=== PATIENT | female | born 1945 | race Caucasian/White ===

== ENCOUNTER → 2019-01-09 12:06 | Outpatient (CLI) | payer MEDICARE, OTHER, SELFPAY ==
[2019-01-09 12:28] LABS: Hematocrit 49.1 % (37-47); Hemoglobin 16.1 g/dL (12.0-15.0); Mean Corp Hgb Conc 32.8 g/dL (32-36); Mean Corpuscular Hgb 32.7 pg (27.0-32.0); Mean Corpuscular Volume 99.8 fL (81-99); Mean Platelet Vol. 11.7 fl (6.2-12.0); Platelet Count 205 K/mm3 (150-450); RBC Distribution Width CV 11.9 % (11.6-14.6); Red Blood Count 4.92 M/mm3 (4.2-5.4); White Blood Count 7.2 K/mm3 (4.4-11.0)
[2019-01-09 13:06] LABS: Vitamin D,25 Hydroxy 36.6 ng/mL (29.95-100.01)
[2019-01-09 13:16] LABS: ALB/GLOB Ratio 1.3 RATIO (0.9-2.4); AST(SGOT) 15 U/L (15-37); Alanine Aminotransfer ALT/SGPT 16 U/L (13-56); Albumin, Serum 4.3 g/dL (3.2-5.0); Alkaline Phosphatase 66 U/L (45-117); Anion Gap 5 (5-15); BUN 14 mg/dL (7-18); Calcium,Total 9.4 mg/dL (8.5-10.1); Chloride 106 mmol/L (98-107); Cholesterol 220 mg/dL (200); Creatinine, Serum 0.82 mg/dL (0.55-1.02); EST Glomerular Filtration Rate 73 mL/min (>60); Est Glom Filt Rate - Afr Amer 88 mL/min (>60); Globulin 3.4 g/dL (2.2-4.2); Glucose 88 mg/dL (74-106); High Density Lipoprotein 70 mg/dL; Potassium 4.2 mmol/L (3.5-5.1); Protein, Total 7.7 g/dL (6.4-8.2); Sodium Level 139 mmol/L (136-145); Thyroid Stim Hormone (TSH) 1.28 uIU/mL (0.358-3.74); Triglycerides 109 mg/dL; Very Low Density Lipoprotein 22 mg/dL (5-40)
== END ==
PROVIDERS: Family Provider Family Medicine Geriatric Medicine; PCP Family Medicine Geriatric Medicine; Referring Provider Student in an Organized Health Care Education/Training Program; Visit Provider Student in an Organized Health Care Education/Training Program
DX: E78.00 Pure hypercholesterolemia, unspecified (principal); E55.9 Vitamin D deficiency, unspecified; R63.6 Underweight
CPT/HCPCS: 80053; 80061; 82306; 84443; 85027

== ENCOUNTER → 2021-03-28 10:26 | Outpatient (CLI) | payer MEDICARE, OTHER, SELFPAY ==
--- NOTE | 2021-03-28 10:30 | EKG12_ITS ---
Test Reason : ROUTINE Blood Pressure : / mmHG Vent. Rate : 091 BPM Atrial Rate : 091 BPM P-R Int : 158 ms QRS Dur : 074 ms QT Int : 336 ms P-R-T Axes : 084 075 082 degrees QTc Int : 413 ms Normal sinus rhythm with sinus arrhythmia Incomplete right bundle branch block Left atrial enlargement Poor R wave progression Confirmed by NELLY PRETTY, ZHAO ([id number]), video editor EDEL NEWELL ([id number]) on 03/29/2021 10:01:28 AM Referred By: Yajaira Giles Confirmed By:ZHAO VILLEGAS MD
--- NOTE | 2021-03-28 10:42 | RAD_ITS ---
STUDY: X-RAY CHEST REASON FOR EXAM: Female, 75 years old. dyspnea on exertion TECHNIQUE: PA and lateral views of the chest. COMPARISON: Thoracic spine February 01, 2014. FINDINGS: No focal infiltrates or effusions. No pneumothorax. Lungs are hyperinflated. Normal size heart. Normal mediastinum and margaux. Normal visualized pulmonary arteries. Normal visualized aortic arch and descending thoracic aorta. Anterior wedging of an upper lumbar vertebral body unchanged. Normal visualized ribs, clavicles, and shoulders. There is no demonstrated abnormality of the visualized soft tissue structures of the upper abdomen. RAD/Chest PA and Lateral IMPRESSION: No acute cardiopulmonary disease. Hyperinflation. Electronically Signed: Mario Matos MD at 4:54 EST , Service support ,
== END ==
PROVIDERS: PCP Internal Medicine; Referring Provider Internal Medicine; Visit Provider Internal Medicine
DX: R06.00 Dyspnea, unspecified (principal)
CPT/HCPCS: 71046; 93005

== ENCOUNTER → 2021-04-05 12:44 | Outpatient (CLI) | payer MEDICARE, OTHER, SELFPAY ==
--- NOTE | 2021-04-06 10:10 | PFT ---
INTRODUCTION: The patient is a 75-year-old female that presents for pulmonary function studies secondary to a diagnosis of dyspnea. Respiratory therapy reported good patient effort. Bronchodilators were used during testing. INTERPRETATION: Forced expiration spirometry demonstrates the presence of a severe large airways obstructive ventilatory defect. There was a significant response to aerosolized bronchodilators noted. Spirograms are of fair quality but do not plateau indicating slow emptying of the lungs. Body plethysmography was performed and revealed an elevated TLC and RV, indicative of underlying hyperinflation and air trapping. Diffusing capacity by single breath CO is reduced at 55% of predicted. IMPRESSION: Partially reversible severe large airways obstructive ventilatory defect with associated hyperinflation, air trapping and moderate reduction in diffusing capacity.
== END ==
PROVIDERS: PCP Internal Medicine; Referring Provider Internal Medicine; Visit Provider Internal Medicine
DX: R06.00 Dyspnea, unspecified (principal)
CPT/HCPCS: 94060; 94726; 94729

== ENCOUNTER 2021-05-04 13:40 | Outpatient (CLI) | payer MEDICARE, OTHER, SELFPAY ==
[2021-05-04 13:45] VITALS: PULSE 104; PULSE 110; PULSE 114; PULSE 115; PULSE 117; PULSE 91; O2SAT 94; O2SAT 95; O2SAT 96; O2SAT 97
--- NOTE | 2021-05-05 10:15 | PCM.PSN.6M ---
PSN 6 Minute Walk Test 6 Minute Walk Test 6 Minute Walk Test: 6 Minute Walk Test PSN:6-Minute Walk Test Start: 05/04/21 14:01 Freq: Status: Active Protocol: [id number].6MINW Document 05/04/21 13:45 (Rec: 05/04/21 14:04 [id number]) 6 Minute Walk Test Date Performed 05/04/21 Time Performed 13:45 Height 5 ft 5 in Weight: 47.174 kg Weight in Pounds 104.[address]: Yajaira Giles Assistive device used: None Pre-test Oxygen Delivery Method Room Air Pulse Ox (%) 96 Pulse Rate (60-100 beats/min) 91 Dyspnea Amanuel Scale (0-10) 0 Exertion Amanuel Scale (6-20) 6 1st minute Oxygen Delivery Method Room Air Pulse Ox (%) 96 Pulse Rate (60-100 beats/min) 115 H 2nd minute Oxygen Delivery Method Room Air Pulse Ox (%) 94 Pulse Rate (60-100 beats/min) 110 H 3rd minute Oxygen Delivery Method Room Air Pulse Ox (%) 97 Pulse Rate (60-100 beats/min) 114 H 4th minute Oxygen Delivery Method Room Air Pulse Ox (%) 95 Pulse Rate (60-100 beats/min) 117 H 5th minute Oxygen Delivery Method Room Air Pulse Ox (%) 96 Pulse Rate (60-100 beats/min) 115 H 6th minute Oxygen Delivery Method Room Air Pulse Ox (%) 97 Pulse Rate (60-100 beats/min) 114 H Post-test Oxygen Delivery Method Room Air Pulse Ox (%) 96 Pulse Rate (60-100 beats/min) 104 H Dyspnea Amanuel Scale (0-10) 3 Exertion Amanuel Scale (6-20) 11 Full Laps Walked 17 Partial Lap, Number of Tiles Walked 30 Total Distance Walked (ft) 1033 Interpretation Interpretation: The patient ambulated 1033 feet over the course of 6 minutes beginning on room air without assistive devices. Pretesting oxygen saturation was noted to be 96% on room air. With ambulation, the cecily oxygen saturation was 94%. There was no significant exertional oxygen desaturation. Recommendations Recommendations: There is no indication for the use of supplemental oxygen at this time.
== END 2021-05-04 23:59 | disposition short-term general hospital (02) ==
LOC: PSN 13:41
PROVIDERS: PCP Internal Medicine; Referring Provider Internal Medicine; Visit Provider Internal Medicine
DX: R06.00 Dyspnea, unspecified (principal)
CPT/HCPCS: 94618

== ENCOUNTER → 2022-05-03 | Outpatient (CLI) | payer MEDICARE, OTHER, SELFPAY ==
--- NOTE | 2022-05-03 10:22 | BI_ITS ---
MAMMOGRAPHY - BILATERAL SCREENING REASON FOR EXAM: Female, 76 years old. Routine annual screening examination. PERTINENT HISTORY: Non-contributory. Remote left excisional breast biopsy. TECHNIQUE: Digital bilateral breast ria (3D mammographic acquisition) in the CC and MLO projections. 2-D mediolateral oblique (MLO) and craniocaudad (CC) views of both breasts were obtained. CAD: Full Field Digital Mammography with Computer Added Detection was performed. COMPARISON: Comparison is made with prior study dated 01/14/2015 and 10/30/2011. FINDINGS: Breast Composition: The breasts are heterogeneously dense, which may obscure small masses. There are no dominant masses or suspicious calcifications. Scattered bilateral macrocalcifications. No other significant abnormalities are identified. There has been no significant change since the prior study. BI/SCRN MAMM (CAD)W/RIA BILAT IMPRESSION: Stable bilateral screening mammogram. Yearly follow-up mammogram recommended. (A) ASSESSMENT CATEGORY: BIRADS Category 2: Benign. A letter regarding these results will be sent to the patient by the facility within 30 days. Approximately 10% of breast cancers are not detected by mammography. A normal mammogram should not delay biopsy of a clinically suspicious abnormality. [id number] Electronically Signed: Roman Renner MD at 13:04 EST ,
--- NOTE | 2022-05-03 10:29 | BD_ITS ---
STUDY: DUAL ENERGY X-RAY ABSORPTIOMETRY / DXA REASON FOR EXAM: Female, 76 years old. M810 TECHNIQUE: Bone Mineral Density (BMD) measurements of lumbar spine and bilateral hips were obtained. COMPARISON: Comparison is made with prior study dated 06/30/2014. FINDINGS: Lumbar Spine (L1-L4): g/cm2 (0.886) / T-score (-1.5) / Z-score (0.9) Findings are suggestive of osteopenia with a low fracture risk. Left Femur Total: g/cm2 (0.542) / T-score (-3.3) / Z-score (-1.5) Left Femoral Neck: g/cm2 (0.572) / T-score (-2.5) / Z-score (-0.5) Right Femur Total: g/cm2 (0.530) / T-score (-3.4) / Z-score (-1.6) Right Femoral Neck: g/cm2 (0.590) / T-score (-2.3) / Z-score (-0.3) The T-Scores on the most recent prior examination were: Lumbar Spine (L1-L4): There has been worsening of bone density since the previous examination. Left Femur Total: which represents an improvement of 2.5%. Right Femur Total: which represents an improvement of 7.9%. BD/Dexa Bone Density Study IMPRESSION: The patient is considered osteoporotic as outlined below according to World [employer] Organization (WHO) criteria with a high fracture risk. There has been improvement of bone density since the previous examination. Reference Information: The T-score is the number of standard deviations above or below the standard which is normal for young adults at their peak bone mineral density. The World Health Organization (WHO) interprets the T-scores as follows: Above -1 Normal bone density Between -1 and -2.5 Osteopenia Equal to / or below -2.5 Osteoporosis As a practical clinical guideline, osteopenia may be graded as follows: Mild -1 through -1.5 Moderate -1.6 through -2.0 Severe -2.1 through -2.4 The Z-score is the number of standard deviations above or below age-matched controls. A Z-score of less than -1.5 would be considered abnormal. References: 1. NIH Osteoporosis and Related Bone Diseases www osteo.org 2. International Society for Clinical Densitometry www iscd.org 3. National Osteoporosis Foundation www nof.org Electronically Signed: Roman Renner MD at 9:27 EST ,
== END | disposition home or self-care (01) ==
LOC: OPBD 10:19
PROVIDERS: PCP Family Medicine; Visit Provider Family Medicine
DX: Z12.31 Encounter for screening mammogram for malignant neoplasm of breast (principal); M81.0 Age-related osteoporosis without current pathological fracture; Z13.820 Encounter for screening for osteoporosis
CPT/HCPCS: 77063; 77067; 77080

== ENCOUNTER → 2022-07-04 | Outpatient (CLI) | payer MEDICARE, OTHER, SELFPAY ==
[2022-07-04 13:32] LABS: Absolute Lymphocyte Count 1.36 X10^3/uL (0.83-4.51); Absolute Neutrophil Count 5.9 X10^3/uL (2.0-7.7); Basophil# 0.04 X10^3/uL; Basophil% 0.5 % (0-1); Eosinophil# 0.06 X10^3/uL; Eosinophils% 0.8 % (0-5); Hematocrit 45.5 % (37-47); Hemoglobin 14.4 g/dL (12.0-15.0); Lymphocyte # 1.36 X10^3/ul (0.83-4.51); Lymphocyte % 17.1 % (19-41); Mean Corp Hgb Conc 31.6 g/dL (32-36); Mean Corpuscular Hgb 31.7 pg (27.0-32.0); Mean Corpuscular Volume 100.2 fL (81-99); Mean Platelet Vol. 11.5 fl (6.2-12.0); Monocyte# 0.61 X10^3/uL; Monocyte% 7.7 % (0-10); NRBC Flagged by Analyzer 0 % (0-5); Neutrophil # 5.87 X10^3/uL (2.7-7.7); Neutrophil % 73.6 % (47-70); Platelet Count 233 K/mm3 (150-450); RBC Distribution Width CV 13.2 % (11.6-14.6); RBC Distribution Width SD 49.1 fl (35.1-43.9); Red Blood Count 4.54 M/mm3 (4.2-5.4)
[2022-07-04 14:25] LABS: ALB/GLOB Ratio 1.4 RATIO (0.9-2.4); AST(SGOT) 21 U/L (15-37); Alanine Aminotransfer ALT/SGPT 30 U/L (13-56); Albumin, Serum 4.1 g/dL (3.2-5.0); Alkaline Phosphatase 63 U/L (45-117); Anion Gap 6 (5-15); BUN 14 mg/dL (7-18); BUN/Creat Ratio 18.7 RATIO (10-20); Calcium,Total 9.4 mg/dL (8.5-10.1); Chloride 107 mmol/L (98-107); Cholesterol 199 mg/dL (200); Creatinine, Serum 0.75 mg/dL (0.55-1.02); EST Glomerular Filtration Rate 81 mL/min (>60); Est Glom Filt Rate - Afr Amer 98 mL/min (>60); Ferritin 23 ng/mL (8-252); Glucose 102 mg/dL (74-106); High Density Lipoprotein 70 mg/dL; Magnesium 2.4 mg/dL (1.6-2.6); Potassium 4.3 mmol/L (3.5-5.1); Protein, Total 7.1 g/dL (6.4-8.2); Sodium Level 141 mmol/L (136-145); Triglycerides 172 mg/dL; Very Low Density Lipoprotein 34 mg/dL (5-40)
[2022-07-04 14:29] LABS: Vitamin B12 > 2000 pg/mL (211-911)
== END | disposition home or self-care (01) ==
LOC: MFPLAB 12:21
PROVIDERS: PCP Family Medicine; Referring Provider Family Medicine; Visit Provider Family Medicine
DX: R25.2 Cramp and spasm (principal)
CPT/HCPCS: 36415; 80053; 80061; 82607; 82728; 83735; 84443; 85025

== ENCOUNTER 2023-01-09 13:54 | Emergency (ER) | payer MEDICARE, OTHER, SELFPAY ==
[2023-01-09 13:55] VITALS: BP 135/75; PULSE 79; RESP 30; TEMP 36; O2SAT 95; BMI 17.6
--- NOTE | 2023-01-09 14:08 | EX.ED.DYSGE1 ---
HPI History of Present Illness Chief Complaint: Dizziness Informant: patient and family Narrative Narrative: By EMS sister currently present during evaluation. Patient at the hardware store with the sister, was standing at the counter for 5 minutes sudden onset feeling off with tunnel vision. She reported lightheaded symptoms no chest pains or palpitations. She went and sat on the bench reported was sweaty and nearly passed out. EMS was contacted. Had a transient right frontal headache during this time however is resolved. No history of similar. History of COPD with tobacco history. No home oxygen. No recent cough. No abdominal pain. No recent vomiting diarrhea. Denies urinary symptoms. Further discussion she did start CBD Gummies a week ago taking it daily. She took 1 at 1030 today. She states she has not felt any effects of it since taking it. She states 1 sisters take it for back pain, she states at times would have some spasms in her upper back when watching TV. None currently. Currently feels back to baseline. Prior similar symptoms: No PFSH PFSH Medical History Breast lump Cataracts, bilateral Depression Hearing problem History of fracture Hyperlipemia Osteoarthritis Osteoporosis Home Medications albuterol sulfate 90 mcg/actuation aerosol inhaler 2 puff inhalation Q6H PRN 03/20/21 [History Last Taken Unknown] umeclidinium 62.5 mcg-vilanterol 25 mcg/actuation powdr for inhalation (Anoro Ellipta) 1 inh inhalation DAILY #60 ea 06/26/21 [Rx Last Taken Unknown] Allergy/AdvReac Type Severity Reaction Status Date / Time No Known Allergies Allergy Verified 05/08/21 13:02 Family History Mother Heart disease Diabetes Sister Hypertension Thyroid disorder Diabetes Cancer Brother Diabetes Surgical History History of breast biopsy History of tubal ligation Hx of eye surgery Social History Smoking Status: Current every day smoker tobacco type: cigarettes Tobacco: How many years used: 50 alcohol intake: never substance use type: does not use what type of physical activity do you participate in: none ROS ROS ED Constitutional Constitutional ED: Denies chills, fever(s) or sweats Eyes Eyes: Denies change in vision ENT ENT ED: Denies dysphagia or sore throat Cardiovascular Cardiovascular: Denies chest pain, leg edema, palpitations or racing heartbeat Respiratory/Chest Respiratory/Chest: Denies cough, dyspnea or dyspnea on exertion Gastrointestinal Gastrointestinal: Denies abdominal pain, diarrhea, nausea or vomiting Genitourinary Genitourinary ED: Denies dysuria, hematuria or urinary frequency Musculoskeletal Musculoskeletal: Denies back pain, extremity pain or neck pain Integumentary Denies rash or wounds Neurologic Neurologic: Denies headache(s), paresthesias or weakness EXAM Physical Exam Const Vital Signs: 01/09/23 13:55 01/09/23 14:02 01/09/23 15:23 Temperature 96.8 F L Temperature Source Temporal Pulse Rate 79 81 Respiratory Rate 30 H Respiratory Effort Normal Respiratory Pattern Normal Blood Pressure 135/75 H 135/67 H Blood Pressure Mean 95 Pulse Ox 95 97 Oxygen Delivery Method Room Air Positive well nourished and well developed General Appearance ED: well developed and NAD HEENT Reports moist mucous membranes normocephalic and atraumatic Eyes PERRL, EOMs intact bilaterally and conjunctivae normal Eyes Narrative: No nystagmus General Eye ED: Yes normal appearance of both eyes Neck no lymphadenopathy and supple General: Negative for tenderness Chest Wall Chest: Negative for tenderness Resp normal respiratory effort and normal air movement Effort and Inspection: symmetric chest movement; Negative for respiratory distress Cardio regular rate, regular rhythm and no murmurs Peripheral Pulses: pulses 2+ throughout GI normal to inspection, nondistended, normoactive bowel sounds and non-tender Palpation: Negative for guarding or rebound tenderness present Back/Spine no CVA tenderness and no thoracic nor lumbar tenderness Extremity normal to inspection General Extremety ED: Negative for edema or tenderness General Extremity: Negative for edema Neuro oriented x3, CN's II-XII intact bilaterally and no sensory deficits noted Neuro Narrative: NIH 0, normal cerebellar testing upper and lower. Sensorium / Orientation: awake and alert Skin no rashes or lesions noted and no wounds MDM MDM MDM Narrative Medical decision making narrative: Interventions / MDM: Differential diagnosis: Near syncope, vasovagal reaction, cardiac dysrhythmia, electrolyte abnormalities Diagnosis considered but do not suspect: N/A My EKG interpretation: Sinus rate of 79, no ST or T wave changes. QTc 442. Imaging independently reviewed and interpreted by myself: CT brain: No acute process also read by radiology External documents reviewed: N/A Test considered but not ordered:N/A ED course: Patient with no focal deficits history exam concerning for vasovagal reaction. She currently asymptomatic. NIH of 0. Transient right frontal headache. CT brain ordered. EKG sinus rhythm. She had no palpitations. Basic labs ordered for further evaluation. Laboratory studies normal CT brain negative. Remained asymptomatic. Sinus rhythm on the monitor. She was ambulated with no return of symptoms. Discussed with patient monitoring symptoms with return precautions. Outpatient follow-up with her PCP. All questions were answered. Re-evaluation: stable Disposition discussed with patient/family/significant other: Patient and sister Case discussed with consulting clinician: N/A This note was generated with [employer] software. It may contain incorrect words, spelling, and punctuation that were not noted in checking the note before signing. Lab Data Labs: Laboratory Results - last 24 hr 01/09/23 14:00 WBC 9.0 RBC 4.16 L Hgb 13.6 Hct 41.5 MCV 99.8 H MCH 32.7 H MCHC 32.8 RDW Std Deviation 48.5 H RDW Coeff of Walter 13.2 Plt Count 278 MPV 10.6 Immature Gran % (Auto) 0.300 Neut % (Auto) 73.8 H Lymph % (Auto) 16.8 L [place] % (Auto) 8.1 Eos % (Auto) 0.7 Baso % (Auto) 0.3 Absolute Neuts (auto) 6.7 Absolute Lymphs (auto) 1.52 Nucleated RBC % 0 Sodium 141 Potassium 3.5 Chloride 107 Carbon Dioxide 30.0 Anion Gap 4 L BUN 14 Creatinine 0.70 Estim Creat Clear Calc 36.83 Est GFR (MDRD) Af Amer 106 Est GFR (MDRD) Non-Af 87 BUN/Creatinine Ratio 20.1 H Glucose 113 H Calcium 9.3 Radiography Diagnostic Testing: Clinical Impression(s) from Imaging Studies Brain CT 01/09/23 14:24 IMPRESSION: Chronic involutional changes of the brain. Electronically Signed: Roman Renner MD at 15:00 EDT , Discharge Plan Triage Chief Complaint: Dizziness ED Provider: Ion Freeman Dx/Rx/DC Orders Clinical Impression: Headache, Vasovagal near syncope Instructions: ED Near-Fainting- Vagal Reaction Prescriptions: No Action albuterol sulfate 90 mcg/actuation HFA aerosol inhaler 2 puff inhalation Q6H PRN Anoro Ellipta 62.5-25 mcg/actuation blister with device 1 inh inhalation DAILY Qty: 60 5RF Primary Care Provider: Filomena Thurston Referrals: Filomena Thurston, [Primary Care Provider] - 1 Week Activity Restrictions/Additional Instructions: Labs normal EKG normal CT brain negative. Stop your use of CBD as this could be a culprit of your symptoms. Monitor symptoms. If symptoms recur or worsens return to the ED for evaluation. Follow-up with your doctor. Disposition Disposition: Home, Self Care
--- NOTE | 2023-01-09 14:24 | EKG12_ITS ---
Test Reason : DIZINESS Blood Pressure : / mmHG Vent. Rate : 079 BPM Atrial Rate : 079 BPM P-R Int : 154 ms QRS Dur : 070 ms QT Int : 386 ms P-R-T Axes : 080 068 063 degrees QTc Int : 442 ms Normal sinus rhythm Normal ECG Confirmed by AMARI PRETTY, SOM ([id number]), editor city SINDHU WIN ([id number]) on 01/11/2023 2:43:00 PM Referred By: TL Confirmed By:SOM FITZPATRICK MD
--- NOTE | 2023-01-09 14:24 | CT_ITS ---
STUDY: CT BRAIN WITHOUT CONTRAST REASON FOR EXAM: Female, 77 years old. Headache RADIATION DOSAGE (If Supplied By Facility): CTDIvol = ( 44.99 ) mGy, DLP = ( 745.49 ) mGycm TECHNIQUE: Transaxial CT imaging of the brain was performed without administration of intravenous contrast material. Individualized dose optimization techniques were used for this CT. COMPARISON: No relevant priors. FINDINGS: Normal soft tissue structures. Normal calvarium. There is mild cerebral atrophy with widening of the extra-axial spaces and ventricular dilatation. There are areas of decreased attenuation within the white matter tracts of the supratentorial brain, consistent with microvascular disease changes. Normal basal ganglia and thalami. Normal brainstem. Normal cerebellum. There is no intracranial hemorrhage. There are no findings of an acute ischemic infarction. Atherosclerotic plaque formation of the cavernous portions of the internal carotid arteries and vertebral arteries. Normal visualized paranasal sinuses. CT/Brain/Head without Contrast IMPRESSION: Chronic involutional changes of the brain. Electronically Signed: Roman Renner MD at 15:00 EDT ,
[2023-01-09 14:46] LABS: Anion Gap 4 (5-15); BUN 14 mg/dL (7-18); BUN/Creat Ratio 20.1 RATIO (10-20); Calcium,Total 9.3 mg/dL (8.5-10.1); Chloride 107 mmol/L (98-107); EST Glomerular Filtration Rate 87 mL/min (>60); Est Glom Filt Rate - Afr Amer 106 mL/min (>60); Estimated Creatinine Clearance 36.83 ml/min; Glucose 113 mg/dL (74-106); Potassium 3.5 mmol/L (3.5-5.1); Sodium Level 141 mmol/L (136-145)
[2023-01-09 14:54] LABS: Absolute Lymphocyte Count 1.52 X10^3/uL (0.83-4.51); Absolute Neutrophil Count 6.7 X10^3/uL (2.0-7.7); Basophil# 0.03 X10^3/uL; Basophil% 0.3 % (0-1); Eosinophil# 0.06 X10^3/uL; Eosinophils% 0.7 % (0-5); Hematocrit 41.5 % (37-47); Hemoglobin 13.6 g/dL (12.0-15.0); Lymphocyte # 1.52 X10^3/ul (0.83-4.51); Lymphocyte % 16.8 % (19-41); Mean Corp Hgb Conc 32.8 g/dL (32-36); Mean Corpuscular Hgb 32.7 pg (27.0-32.0); Mean Corpuscular Volume 99.8 fL (81-99); Mean Platelet Vol. 10.6 fl (6.2-12.0); Monocyte# 0.73 X10^3/uL; Monocyte% 8.1 % (0-10); NRBC Flagged by Analyzer 0 % (0-5); Neutrophil # 6.66 X10^3/uL (2.7-7.7); Neutrophil % 73.8 % (47-70); Platelet Count 278 K/mm3 (150-450); RBC Distribution Width CV 13.2 % (11.6-14.6); RBC Distribution Width SD 48.5 fl (35.1-43.9); Red Blood Count 4.16 M/mm3 (4.2-5.4)
[2023-01-09 15:23] VITALS: BP 135/67; PULSE 81; O2SAT 97
== END 2023-01-09 15:28 | disposition home or self-care (01) ==
PROVIDERS: Emergency Provider Emergency Medicine; PCP Family Medicine; Visit Provider Emergency Medicine
DX: R55 Syncope and collapse (principal); R51.9 Headache, unspecified; F17.210 Nicotine dependence, cigarettes, uncomplicated
CPT/HCPCS: 70450; 80048; 85025; 93005; 99285; A4216

== ENCOUNTER → 2023-02-18 | Outpatient (CLI) | payer MEDICARE, OTHER, SELFPAY ==
--- NOTE | 2023-02-18 12:43 | CDU_ITS ---
Reason For Study: Diplopia Rt. Velocities/BP Lt. Velocities/BP Prox CCA 94.9/14.6 cm/sec. Prox CCA 90.4/17.9 cm/sec. Mid CCA 79.5/21.2 cm/sec. Mid CCA 80.6/20.4 cm/sec. Dist CCA 45.4/14.6 cm/sec. Dist CCA 72.0/19.2 cm/sec. Prox ICA 68.5/20.1 cm/sec. Prox ICA 84.2/24.1 cm/sec. Mid ICA 79.5/25.6 cm/sec. Mid ICA 100.2/31.4 cm/sec. Dist ICA 115.6/37.1 cm/sec. Dist ICA 108.9/35.8 cm/sec. Rt. ICA/CCA = 1.5. Lt. ICA/CCA = 1.4. Prox ECA 76.8/6.9 cm/sec. Prox ECA 74.3/8.4 cm/sec. Rt. Vert. 66.3/13.5 cm/sec. Lt. Vert. 43.1/11.9 cm/sec. Right Extracranial There is intimal thickening but no significant atherosclerotic plaque noted in the right common carotid artery. There is heterogeneous, irregular atherosclerotic plaque noted in the right internal carotid artery. There is heterogeneous, irregular atherosclerotic plaque noted in the right external carotid artery. Antegrade flow is noted in the right vertebral artery. Left Extracranial There is homogeneous, smooth atherosclerotic plaque noted in the left common carotid artery. There is heterogeneous, irregular atherosclerotic plaque noted in the left internal carotid artery. The atherosclerotic plaque causes acoustic shadowing. There is heterogeneous, irregular atherosclerotic plaque noted in the left external carotid artery. Antegrade flow is noted in the left vertebral artery. Procedure Carotid Duplex [id number]. This is a Carotid Duplex examination using B-mode, color flow and specral Doppler. The exam was diagnostic. Exam performed in department. VL/Carotid Duplex Ultrasound Interpretation Summary Slightly irregular plaque at the proximal right internal carotid artery with le ss than 50% stenosis Less than 50% stenosis right external carotid artery Irregular dense calcific plaque with shadowing at the proximal left internal ca rotid artery with less than 50% stenosis Less than 50% stenosis left external carotid artery Patent and antegrade vertebral arteries bilaterally Ordering Physician: Teo Davis Referring Physician: Teo Davis Performed By: Darwin Phillip RVT
--- NOTE | 2023-02-18 13:38 | MRI_ITS ---
STUDY: MRI BRAIN WITHOUT CONTRAST REASON FOR EXAM: Female, 77 years old. DIPLOPLIA TECHNIQUE: Standardized multiplanar fat and water weighted pulse sequences were obtained. COMPARISON: CT brain January 09, 2023 FINDINGS: There is mild cerebral atrophy with widening of the extra-axial spaces and ventricular dilatation. There are multiple white matter hyperintensities, distributed throughout the deep white matter tracts of the cerebral hemispheres, consistent with moderate chronic white matter ischemic changes. There is no evidence for recent intracranial ischemia or other cause of cytotoxic edema on diffusion weighted imaging (DWI). Normal bilateral basal ganglia. Normal thalami. There is no extra-axial fluid accumulation. Normal flow voids within the major intracranial circulation suggesting patency by spin echo criteria. Normal sella turcica, pituitary gland, infundibular stalk, optic chiasm and hypothalamus. Normal tectal plate and pineal gland. Normal midbrain, jacinto and medulla. Normal cerebellum. Normal basal cisterns. Normal bilateral temporal bones. Normal bilateral internal auditory canals. No demonstrated orbital abnormality, within the constraints of a routine brain study. Normal visualized paranasal sinuses. Normal calvarium and skull base. Normal visualized soft tissue structures. Normal visualized upper cervical spine. MRI/Brain without Contrast IMPRESSION: Involutional changes of the brain, as described above. No acute disease. Electronically Signed: Alexys Salter MD at 23:48 EST ,
== END | disposition home or self-care (01) ==
PROVIDERS: PCP Family Medicine; Referring Provider Ophthalmology; Visit Provider Ophthalmology
DX: H53.2 Diplopia (principal)
CPT/HCPCS: 36415; 70551; 93880

== ENCOUNTER 2023-04-09 09:40 | Emergency (ER) | payer MEDICARE, OTHER, SELFPAY ==
[2023-04-09 09:41] VITALS: BP 148/73; PULSE 117; RESP 18; TEMP 36.8; O2SAT 93; BMI 15.7
[2023-04-09 10:05] VITALS: O2SAT 91
[2023-04-09] MEDS: Albuterol 2.5 MG/3 ML VIAL.NEB. INHALATION (10:37)
[2023-04-09] MEDS: Ipratropium/Albuterol Sulfate 3 ML AMPUL.NEB INHALATION (10:37)
[2023-04-09 10:38] VITALS: PULSE 92; RESP 21
[2023-04-09] MEDS: MethylPREDNISolone 125 MG/2 ML Vial IV (10:40)
[2023-04-09 10:45] LABS: Absolute Lymphocyte Count 0.66 X10^3/uL (0.83-4.51); Basophil# 0.03 X10^3/uL; Basophil% 0.2 % (0-1); Eosinophil# 0.01 X10^3/uL; Eosinophils% 0.1 % (0-5); Hematocrit 42.3 % (37-47); Hemoglobin 13.8 g/dL (12.0-15.0); Lymphocyte # 0.66 X10^3/ul (0.83-4.51); Lymphocyte % 4.2 % (19-41); Mean Corp Hgb Conc 32.6 g/dL (32-36); Mean Corpuscular Hgb 31.6 pg (27.0-32.0); Mean Corpuscular Volume 96.8 fL (81-99); Mean Platelet Vol. 10.6 fl (6.2-12.0); Monocyte# 1.05 X10^3/uL; Monocyte% 6.6 % (0-10); NRBC Flagged by Analyzer 0 % (0-5); Neutrophil # 14.01 X10^3/uL (2.7-7.7); Neutrophil % 88.4 % (47-70); Platelet Count 235 K/mm3 (150-450); RBC Distribution Width CV 12.9 % (11.6-14.6); RBC Distribution Width SD 46.1 fl (35.1-43.9); Red Blood Count 4.37 M/mm3 (4.2-5.4); White Blood Count 15.8 K/mm3 (4.4-11.0)
[2023-04-09 11:05] LABS: Anion Gap 4 (5-15); BUN 11 mg/dL (7-18); BUN/Creat Ratio 16.8 RATIO (10-20); Calcium,Total 9.9 mg/dL (8.5-10.1); Chloride 106 mmol/L (98-107); Creatinine, Serum 0.66 mg/dL (0.55-1.02); EST Glomerular Filtration Rate 94 mL/min (>60); Est Glom Filt Rate - Afr Amer 113 mL/min (>60); Estimated Creatinine Clearance 33.07 ml/min; Glucose 106 mg/dL (74-106); Potassium 3.6 mmol/L (3.5-5.1); Sodium Level 139 mmol/L (136-145); Troponin-I HS 6 pg/mL (3.0-54.0)
--- NOTE | 2023-04-09 11:05 | ED.VIS.DYS ---
HPI History of Present Illness Chief Complaint: Shortness of Breath Informant: patient Narrative Narrative: Patient presents with some cough and shortness of breath. Patient states this has been going on since about out the Saturday before . She is coughing. But she is not bringing much up. No hemoptysis. She states she has soreness every time she coughs but does not really have chest pain. She has never had DVT or PE. After specifically asking I find out she does have a history of COPD. She has albuterol inhaler but does not have a nebulizer at home. She is not on oxygen. No known fevers. No real myalgias. She does state that the inhaler helps but she keeps wheezing. She is just not getting better. PFSH PFS Medical History Breast lump Cataracts, bilateral Depression Hearing problem History of fracture Hyperlipemia Osteoarthritis Osteoporosis Home Medications albuterol sulfate 90 mcg/actuation aerosol inhaler 2 puff inhalation Q6H PRN 03/20/21 [History Last Taken Unknown] umeclidinium 62.5 mcg-vilanterol 25 mcg/actuation powdr for inhalation (Anoro Ellipta) 1 inh inhalation DAILY #60 ea 06/26/21 [Rx Last Taken Unknown] doxycycline monohydrate 100 mg capsule 100 mg PO BID #20 CAPSULES 04/09/23 [Rx Last Taken Unknown] prednisone 20 mg tablet 60 mg (3 x 20 mg) PO DAILY #15 TABLETS 04/09/23 [Rx Last Taken Unknown] Allergy/AdvReac Type Severity Reaction Status Date / Time No Known Allergies Allergy Verified 04/09/23 09:43 Family History Mother Heart disease Diabetes Sister Hypertension Thyroid disorder Diabetes Cancer Brother Diabetes Surgical History History of breast biopsy History of tubal ligation Hx of eye surgery Social History Smoking Status: Current every day smoker tobacco type: cigarettes Tobacco: How many years used: 50 alcohol intake: never substance use type: does not use what type of physical activity do you participate in: none ROS ROS ED ROS Narrative A complete review of systems was performed and is negative except as documented in the history of present illness. Some specific details below. Constitutional: No recent fevers or chills. No real malaise. But she states she is getting tired of coughing all the time. EYE: No discharge, visual complaints, or pain. ENT: No difficulty swallowing. No swelling. No pain. No reflux symptoms. CV: No palpitations. No syncope. She does have chest soreness primarily with a cough. Respiratory: See history of present illness. GI: No abdominal pain. No nausea vomiting diarrhea. No blood in stool. : No frequency dysuria or hematuria. Musculoskeletal: No recent trauma. No pains. No swelling. Skin: No rash. Nondiaphoretic. Neuro: No weakness or numbness. Endocrine: No polyuria or polydipsia. EXAM Physical Exam Narrative Exam Narrative: CONSTITUTIONAL: Patient is nontoxic in appearance. The patient looks comfortable. Work of breathing looks slightly increased. She does look quite thin. HEENT: No notable trauma. Mucous membranes moist. No sinus tenderness. No indication of pain with swallowing. EYES: No conjunctival injection. No proptosis. NECK:No JVD. No stridor. CARDIOVASCULAR: Regular rate. Regular rhythm. No notable murmur. No JVD. Tones are not muffled. RESPIRATORY: No respiratory distress. She does have a moist sounding cough. She has coarse breath sounds throughout. When I have her take deep breaths she really does not move much air. There is a small end expiratory wheeze. But her saturations are normal at 93% on room air. This is with her sitting in bed and not with ambulation though. GASTROINTESTINAL: Not distended. Bowel sounds are normal. No tenderness. No guarding. No rebound. No palpable mass. No bruit is heard. GENITOURINARY: No tenderness over the bladder. No CVA tenderness. MUSCULOSKELETAL: Atraumatic. No peripheral edema. No cord. No tenderness along the deep venous system. No asymmetry. No distended veins. NEUROLOGICAL: Patient is alert and appropriate. No focal deficit noted. SKIN: No pallor. PSYCHIATRIC: Patient is calm. Mood is appropriate. Const Vital Signs: 04/09/23 09:41 04/09/23 10:05 04/09/23 10:38 Temperature 98.2 F Temperature Source Temporal Pulse Rate 117 H 92 Respiratory Rate 18 21 H Respiratory Effort Short of Breath Respiratory Pattern Tachypnea Blood Pressure 148/73 H Blood Pressure Mean 98 Pulse Ox 93 Oxygen Delivery Method Room Air Room Air MDM MDM MDM Narrative Medical decision making narrative: My independent interpretation of the patient's two-view chest x-ray shows advanced COPD but no acute infiltrative process. Radiology does make note of multiple anterior compression fractures. But she is not having symptoms of these as acute. CBC shows a high white count of 15.8 otherwise normal. Patient's electrolytes show no marked abnormalities. Troponin is normal at 6. Patient is rechecked. She is 93% on room air. She is moving more air. She feels better. She would like to go home. Since she has had this for 3 weeks and tolerated well and already improved I think that is reasonable. She actually has an appointment with a immunohematologist, Dr. Rolon here in [facility] in 2 days. I explained she should still keep that. With her change in character or quantity of sputum and cough and high white count I will start doxycycline. We will start steroids for 5 days. She has her inhalers at home. She will talk to pulmonology about the option of getting a nebulizer that may give her a lot of benefit. Lab Data Attestation: I reviewed the patient's lab results. Labs: Laboratory Results - last 24 hr 04/09/23 10:35 WBC 15.8 H RBC 4.37 Hgb 13.8 Hct 42.3 MCV 96.8 MCH 31.6 MCHC 32.6 RDW Std Deviation 46.1 H RDW Coeff of Walter 12.9 Plt Count 235 MPV 10.6 Immature Gran % (Auto) 0.500 Neut % (Auto) 88.4 H Lymph % (Auto) 4.[address] [place] % (Auto) 6.6 Eos % (Auto) 0.1 Baso % (Auto) 0.2 Absolute Neuts (auto) 14.0 H Absolute Lymphs (auto) 0.66 L Nucleated RBC % 0 Sodium 139 Potassium 3.6 Chloride 106 Carbon Dioxide 29.0 Anion Gap 4 L BUN 11 Creatinine 0.66 Estim Creat Clear Calc 33.07 Est GFR (MDRD) Af Amer 113 Est GFR (MDRD) Non-Af 94 BUN/Creatinine Ratio 16.8 Glucose 106 Calcium 9.9 Troponin I High Sens 6 Radiography Diagnostic Testing: Clinical Impression(s) from Imaging Studies Chest X-Ray 04/09/23 11:51 IMPRESSION: Stable findings compatible with COPD. Multiple anterior wedge compression deformities of thoracic vertebral bodies, unaltered. Electronically Signed: Jonathan Tipton MD at 12:17 EST , EKG Initial EKG: Comments: My independent interpretation of the patient's EKG shows normal sinus rhythm with a rate of 89. No ventricular ectopy. There is some baseline variation but no sign of acute ST elevation or depression. NH interval, QRS duration and QTc are normal. Discharge Plan Triage Chief Complaint: Shortness of Breath ED Provider: Jaime Young Dx/Rx/DC Orders Clinical Impression: COPD with acute exacerbation Instructions: ED COPD Flare Prescriptions: New prednisone 20 mg tablet 60 mg PO DAILY Qty: 15 0RF doxycycline monohydrate 100 mg capsule 100 mg PO BID Qty: 20 0RF No Action albuterol sulfate 90 mcg/actuation HFA aerosol inhaler 2 puff inhalation Q6H PRN Anoro Ellipta 62.5-25 mcg/actuation blister with device 1 inh inhalation DAILY Qty: 60 5RF Primary Care Provider: Filomena Thurston Referrals: Elvis Rolon DO [Med Staff - Active Staff] - 2 Days (As scheduled in 2 days) Filomena Thurston DO [Primary Care Provider] - Disposition Disposition: Home, Self Care
--- NOTE | 2023-04-09 11:51 | RAD_ITS ---
STUDY: X-RAY CHEST REASON FOR EXAM: Female, 77 years old. Cough. TECHNIQUE: Frontal and lateral views of the chest. COMPARISON: March 28, 2021. FINDINGS: Marked hyperinflation with flattening of the hemidiaphragms and hyperlucency, unchanged. There is no demonstrated pleural abnormality. Normal size heart. Normal mediastinum and margaux. Normal visualized pulmonary arteries. Stable aortic tortuosity with calcification. Thoracic osteopenia with multiple anterior wedge compression deformities and endplate concavities compatible with osteoporosis, unchanged. Normal visualized ribs, clavicles, and shoulders. No abnormality of the visualized soft tissue structures of the upper abdomen. RAD/Chest PA and Lateral IMPRESSION: Stable findings compatible with COPD. Multiple anterior wedge compression deformities of thoracic vertebral bodies, unaltered. Electronically Signed: Jonathan Tipton MD at 12:17 EST ,
[2023-04-09 13:24] VITALS: BP 158/73; PULSE 88; RESP 24; O2SAT 92
== END 2023-04-09 13:34 | disposition home or self-care (01) ==
PROVIDERS: Emergency Provider Emergency Medicine; PCP Family Medicine; Visit Provider Emergency Medicine
DX: J44.1 Chronic obstructive pulmonary disease with (acute) exacerbation (principal); E78.5 Hyperlipidemia, unspecified; F17.210 Nicotine dependence, cigarettes, uncomplicated; Z79.899 Other long term (current) drug therapy
CPT/HCPCS: 71046; 80048; 84484; 85025; 87428; 87634; 93005; 94640; 96374; 99284; A4216

== ENCOUNTER → 2023-04-30 | Outpatient (CLI) | payer MEDICARE, OTHER, SELFPAY ==
--- OUTSIDE RECORDS SUMMARY | 2023-04-30 12:42 | XMS RPT_ITS | CCD ---
Author Name Unknown Address [facility] [address] [place] [address] Organization [facility] Care Team Providers Care Investigator Narcotics Name Role Phone PARESH HOWELL (BUS PERSON) Unavailable Unavailable Joe Flor DO Primary Care Provider LYNNE PRETTY, DR TRINH Attending UnavailTOM Jacob DO Primary Care Unavailable Medications Completed/Discontinued Medications Medication Drug Class(es) Dates Sig (Normalized) Sig (Original) [id number] 200 actuat albuterol 0.09 mg/actuat metered dose inhaler (1 source) beta2-Adrenergic Agonist Start: 03-15-2020 take 2 puff(s) by inhalation every four hours as needed for wheezing albuterol HFA (VENTOLIN HFA) 90 mcg/actuation inhaler Indications: COPD, severe (HCC) , Other emphysema (HCC) Inhale 2 Puffs as instructed every 4 hours as needed for Wheezing/Shortnes s of Breath. 36 g 1 03/15/2020 Active Problems Active Problems Problem Classification Problem Date Documented Date Episodic/Chronic Chronic obstructive pulmonary disease and bronchiectasis (1 source) Chronic obstructive lung disease; Translations: [Chronic obstructive pulmonary disease, unspecified] Onset: 01-09-2019 01-09-2019 Chronic Disorders of lipid metabolism (1 source) Pure hypercholesterolemia; Translations: [Pure hypercholesterolemia, unspecified] Onset: 03-06-2016 03-06-2016 Chronic Mood disorders (2 sources) Dysthymia; Translations: [Dysthymic disorder] Onset: 03-06-2016 03-06-2016 Chronic Nutritional deficiencies (1 source) Vitamin D deficiency; Translations: [Vitamin D deficiency, unspecified] Onset: 01-09-2019 01-09-2019 Chronic Occlusion or stenosis of precerebral arteries (1 source) Bilateral atherosclerosis of carotid arteries; Translations: [Occlusion and stenosis of bilateral carotid arteries] Onset: 01-06-2018 01-15-2018 Chronic Other screening for suspected conditions (not mental disorders or infectious disease) (3 sources) Patient encounter status; Translations: [Encounter for screening mammogram for malignant neoplasm of breast] Onset: 08-27-2022 Episodic Past or Other Problems Problem Classification Problem Date Documented Da te Episodic/Chronic Other disorders of stomach and duodenum (1 source) Adult hypertrophic pyloric stenosis; Translations: [Adult hypertrophic pyloric stenosis] Onset: 02-27-2017 Episodic Other nutritional; endocrine; and metabolic disorders (1 source) Underweight; Translations: [Underweight] Onset: 01-09-2019 01-09-2019 Episodic Residual codes; unclassified (1 source) Tobacco use and exposure - finding; Translations: [Tobacco use] Onset: 07-09-2018 07-09-2018 Episodic Results Test Name Value Interpretation Reference Range Facil ity Encounters Encounter Date Encounter Type Care Provider Facility Start: 08-27-2022 End: 08-27-[address] ZIGGY BATISTA MD Facility:B Start: 10-04-2021 ambulatory Joe Constantino Gillian roshni DO Work Phone: Internal Medicine [facility] [place] Start: 02-27-2017 Ambulatory PARESH (BUS PERSON) [facility] Procedures Date Procedure Procedure Detail Performing Clinician Start: 02-11-2017 Colonoscopy Joe jasmine DO Work Phone: Start: 03-14-2016 Mammography Joe jasmine DO Work Phone: Plan of Treatment Date Care Activity Detail Author Start: 03-15-2025 LIPID SCREEN LIPID SCREEN [facility] Start: 03-15-2023 DIABETES SCREEN DIABETES SCREEN [facility] Start: 02-11-2022 Colonoscopy COLONOSCOPY [facility] Start: 02-11-2022 COLORECTAL CANCER SCREENING COLORECTAL CANCER SCREENING [facility] Start: 12-07-2021 Influenza vaccination INFLUENZA (#1) [facility] Start: 04-08-2021 ADVANCE DIRECTIVE DISCUSSION ADVANCE DIRECTIVE DISCUSSION [facility] Start: 03-15-2021 ANNUAL PCP TEAM CHRONIC DISEASE VISIT ANNUAL PCP TEAM CHRONIC DISEASE VISIT [facility] Start: 03-14-2017 Mammography MAMMOGRAM [facility] Start: 09-20-2016 FECAL OCCULT BLOOD FECAL OCCULT BLOOD [facility] Start: 12-26-1997 SHINGRIX VACCINE (1 of 2) SHINGRIX VACCINE (1 of 2) [facility] Start: 12-26-1992 COLOGUARD (FIT-DNA) COLOGUARD (FIT-DNA) [facility] Start: 12-26-[address] COLONOGRAPHY [facility] Start: 12-26-1992 SIGMOIDOSCOPY SIGMOIDOSCOPY [facility] Start: 12-26-1966 Urine microalbumin profile DTAP,TDAP,TD (1 - Tdap) [facility] Start: 12-26-1953 PNEUMOCOCCAL: 65+ (1 - PCV) PNEUMOCOCCAL: 65+ (1 - PCV) [facility] Start: 06-25-1948 COVID-19 VACCINE (#1) COVID-19 VACCINE (#1) [facility] End: 11-03-2022 Screening mammography bi 2-view breast inc cad CHE SCREENING Radiology Routine Encounter for screening mammogram for breast cancer 1 Occurrences starting 10/04/2021 until 11/03/2022 [facility] Work Phone: Immunizations Immunization Date Immunization Notes Care Provider Fa tuan 02-01-2020 influenza, high-dose , quadrivalent vaccine (FLUZONE HIGH DOSE QUADRIVALENT) Joe Flor DO Work Phone: [facility] 01-09-2019 influenza, high dose seasonal, preservative-free Joe Flor DO Work Phone: [facility] 01-07-2018 influenza, high dose seasonal, preservative-free Joe Flor DO Work Phone: [facility] Work Phone: 01-20-2017 influenza, high dose seasonal, preservative-free Joe Flor DO Work Phone: [facility] Work Phone: 03-06-2016 influenza, high dose seasonal, preservative-free Joe Flor DO Work Phone: [facility] Work Phone: Payers Date Payer Category Payer Unknown [id number] 2022 Unknown [id number] 2015 Medicare [employer] [place] [employer] [id number] 2015-Present [phone] [address] [place] [address] O [id number] 2008 Unknown [facility] [id number] 2008-Present [phone] [address] [address] [place] [address] Indemnity [id number] 1945 Unknown [id number] Social History Date Type Detail Facility Start: 03-06-2016 Tobacco smoking status NHIS Smokes tobacco daily [facility] Work Phone: History of tobacco use Cigarette Smoker [facility] Work Phone: Start: 03-06-2016 Tobacco use and exposure Smokeless tobacco non-user [facility] Work Phone: Start: 04-12-2020 Alcohol intake Current drinke r of alcohol (finding) [facility] Start: 03-06-2016 History SDOH Alcohol Comment Occasionally [facility] Start: 03-12-2017 Tobacco Comment pack to pack a nd half a day if not working [facility] Start: 1945 Sex Assigned At Not on file C [facility] Clinical Note 09-12-2022 Note Date & Type Note Facility 09-12-2022 Note Patient Outreach (IN [facility]) DEE JIMENEZ ([id number]) 1945 F Date Time Provider Department 09/12/22 JOE FLOR During your visit today, we recorded the following information about you: Allergies As of Date: 09/12/2022 (No Known Allergies) Date Reviewed: 04/12/2020 Reviewed by: Laura AlvesDiesel Technician) RENATO Chapman - Fully Assessed Visit Diagnosis:Encounter for screening mammogram for breast cancer [Z12.31] Order(s):[facility] SCREENING [[id number]] Order #: [id number] FUTURE Prescriptions as of 09/17/2022 - budesonide-formoterol (SYMBICORT) 160-4.5 mcg/actuation inhaler Inhale 2 Puffs as instructed twice daily. - tiotropium bromide (SPIRIVA RESPIMAT) 2.5 mcg/actuation inhaler Inhale 2 Puffs as instructed once daily. Inhale two puffs once daily. - albuterol HFA (VENTOLIN HFA) 90 mcg/actuation inhaler Inhale 2 Puffs as instructed every 4 hours as needed for Wheezing/Shortness of Breath. - pantoprazole DR (PROTONIX) 40 mg tablet Take 1 tablet by mouth once daily. - CALCIUM CARBONATE/VITAMIN D3 (CALCIUM 600 + D ORAL) Take by mouth. Meds Comments as of 03/15/2020: On on current medications. March 15, 2020 Michelle Helton MA Problem List As Of Date 09/12/2022 Noted Resolved Dysthymia [F34.1] 03/06/2016 Pure hypercholesterolemia [E78.00] 03/06/2016 Carotid atherosclerosis, bilateral [I65.23] 01/06/2018 Depression, major, recurrent, moderate (HCC) [F*07/09/2018 Tobacco use [Z72.0] 07/09/2018 Chronic obstructive pulmonary disease (HCC) [J4*01/09/2019 Underweight [R63.6] 01/09/2019 Vitamin D deficiency [E55.9] 01/09/2019 Encounter Status:Closed by FCO MENDEZ on 09/17/22 [facility] Clinical Note 10-04-2021 Note Date & Type Note Facility 10-04-2021 Note Patient Outreach (IN [facility]) DEE JIMENEZ ([id number]) 1945 F Date Time Provider Department 10/04/21 JOE FLOR During your visit today, we recorded the following information about you: Allergies As of Date: 10/04/2021 (No Known Allergies) Date Reviewed: 04/12/2020 Reviewed by: Laura (Diesel Technician) RENATO hCapman - Fully Assessed Visit Diagnosis:Encounter for screening mammogram for breast cancer [Z12.31] Order(s):[facility] SCREENING [[id number]] Order #: [id number] FUTURE Prescriptions as of 10/09/2021 - budesonide-formoterol (SYMBICORT) 160-4.5 mcg/actuation inhaler Inhale 2 Puffs as instructed twice daily. - tiotropium bromide (SPIRIVA RESPIMAT) 2.5 mcg/actuation inhaler Inhale 2 Puffs as instructed once daily. Inhale two puffs once daily. - albuterol HFA (VENTOLIN HFA) 90 mcg/actuation inhaler Inhale 2 Puffs as instructed every 4 hours as needed for Wheezing/Shortness of Breath. - pantoprazole DR (PROTONIX) 40 mg tablet Take 1 tablet by mouth once daily. - CALCIUM CARBONATE/VITAMIN D3 (CALCIUM 600 + D ORAL) Take by mouth. Meds Comments as of 03/15/2020: On on current medications. March 15, 2020 Michelle Helton MA Problem List As Of Date 10/04/2021 Noted Resolved Dysthymia [F34.1] 03/06/2016 Pure hypercholesterolemia [E78.00] 03/06/2016 Carotid atherosclerosis, bilateral [I65.23] 01/06/2018 Depression, major, recurrent, moderate (HCC) [F*07/09/2018 Tobacco use [Z72.0] 07/09/2018 Chronic obstructive pulmonary disease (HCC) [J4*01/09/2019 Underweight [R63.6] 01/09/2019 Vitamin D deficiency [E55.9] 01/09/2019 Encounter Status:Closed by FCO MENDEZ on 10/09/21 [facility] Evaluation note Note Date & Type Note Facility documented in this encounter [facility] Reason for referral (narrative) Diagnostic Procedure Only (Routine) - Pending Review Note Date & Type Note Facility Referral ID Status Reason Start Date Expiration Date Visits Requested Visits Authorized [id number] Pending Review Auto-Generat ed Referral 10/04/2021 11/03/2022 1 1 [facility] Summary Purpose Family History No Family History Records FoundNo Family History Records FoundNo Family History Records Found Advance Directives No Advanced Directives Records FoundDocuments on File Type Date Recorded Patient Counter Former Expl anation Advance Directive(s) 02/11/2017 8:51 AM Advance Directive(s) 12/26/2016 2:39 PM Additional Source Comments INFORMATION SOURCE (unrecogn ized section and content) DATE CREATED AUTHOR AUTHOR'S ORGANIZ ATION 09/15/2022 [facility] ([place]) DATE CREATED AUTHOR AUTHOR'S ORGANIZ ATION 09/19/2022 [facility] Source Comments (unrecognize d section and content) In the event this informatio n is protected by the Federal Confidentiality of Alcohol and Drug Abuse Patient Records regulations: The Federal rules restrict any use of the information to criminally investigate or prosecute any alcohol or drug abuse patient.[facility] Care Teams (unrecognized sec tion and content) FOR RECORDS PERTAINING TO PATIENTS WHO ARE OR HAVE BEEN ENROLLED IN A CHEMICAL DEPENDENCY/SUBSTANCEABUSE PROGRAM, SOME INFORMATION MAY BE OMITTED. This clinical summary was aggregated from multiple sources. Caution should be exercised in using it in the provision of clinical care. This summary normalizes information from multiple sources, and as a consequence, information in this document may materially change the coding, format and clinical context of patient data. In addition, data may be omitted in some cases. CLINICAL DECISIONS SHOULD BE BASED ON THE PRIMARY CLINICAL RECORDS. [facility] [email or web address] [facility]. provides no warranty or guarantee of the accuracy or completeness of information in this document.
--- NOTE | 2023-05-01 10:07 | PFT ---
INTRODUCTION: The patient is a 77-year-old female who presents for pulmonary function studies secondary to a diagnosis of COPD. Respiratory therapy reported good patient effort. Bronchodilators were used during testing. INTERPRETATION: Forced expiration spirometry demonstrated the presence of a severe large airways obstructive ventilatory defect. There was a partial response to aerosolized bronchodilators, although technically nonsignificant. Body plethysmography was performed and revealed an elevated RV to 145% of predicted, indicative of underlying air trapping. Diffusing capacity by single breath CO was reduced to 49% of predicted. IMPRESSION: Irreversible severe large airways obstructive ventilatory defect with associated air trapping and symmetric reduction in diffusing capacity.
== END | disposition home or self-care (01) ==
LOC: PSN 12:21
PROVIDERS: PCP Family Medicine; Referring Provider Internal Medicine Critical Care Medicine; Visit Provider Internal Medicine Critical Care Medicine
DX: F17.211 Nicotine dependence, cigarettes, in remission (principal); J44.9 Chronic obstructive pulmonary disease, unspecified
CPT/HCPCS: 94060; 94726; 94729

== ENCOUNTER → 2023-05-01 | Outpatient (CLI) | payer MEDICARE, OTHER, SELFPAY ==
--- OUTSIDE RECORDS SUMMARY | 2023-05-01 12:41 | XMS RPT_ITS | CCD ---
Author Name Unknown Address [facility] [address] [place] [address] Organization [facility] Care Team Providers Care Pathology Laboratory Technologist Name Role Phone PARESH HOWELL (INSOLE DEPARTMENT WORKER) Unavailable Unavailable Joe Flor DO Primary Care Provider [phone] LYNNE PRETTY, DR TRINH Attending UnavailTOM Jacob DO Primary Care Unavailable Medications Completed/Discontinued Medications Medication Drug Class(es) Dates Sig (Normalized) Sig (Original) [id number] 200 actuat albuterol 0.09 mg/actuat metered dose [...] roshni DO Work Phone: Internal Medicine Main [place] Start: 02-27-2017 Ambulatory PARESH (INSOLE DEPARTMENT WORKER) [facility] Procedures Date Procedure Procedure Detail Performing Clinician Start: 02-11-2017 Colonoscopy Joe jasmine DO Work Phone: Start: 03-14-2016 Mammography Joe jasmine DO Work Phone: Plan of Treatment Date Care Activity Detail Author Start: 03-15-2025 LIPID SCREEN LIPID SCREEN [facility] Start: 03-15-2023 DIABETES SCREEN DIABETES SCREEN [facility] Start: 02-11-2022 Colonoscopy COLONOSCOPY [facility] Start: 02-11-2022 COLORECTAL CANCER SCREENING COLORECTAL CANCER SCREENING [facility] Start: 12-07-2021 Influenza vaccination INFLUENZA (#1) [facility] Start: 04-08-2021 ADVANCE DIRECTIVE DISCUSSION ADVANCE DIRECTIVE DISCUSSION [facility] Start: 03-15-2021 ANNUAL PCP TEAM CHRONIC DISEASE VISIT ANNUAL PCP TEAM CHRONIC DISEASE VISIT [facility] Start: 03-14-2017 Mammography MAMMOGRAM [facility] Start: 09-20-2016 FECAL OCCULT BLOOD FECAL OCCULT BLOOD [facility] Start: 12-26-1997 SHINGRIX VACCINE (1 of 2) SHINGRIX VACCINE (1 of 2) [facility] Start: 12-26-1992 COLOGUARD (FIT-DNA) COLOGUARD (FIT-DNA) [facility] Start: 12-26-[address] COLONOGRAPHY [facility] Start: 12-26-1992 SIGMOIDOSCOPY SIGMOIDOSCOPY [facility] Start: 12-26-1966 Urine microalbumin profile DTAP,TDAP,TD (1 - Tdap) [facility] Start: 12-26-1953 PNEUMOCOCCAL: 65+ (1 - PCV) PNEUMOCOCCAL: 65+ (1 - PCV) [facility] Start: 06-25-1948 COVID-19 VACCINE (#1) COVID-19 VACCINE (#1) [facility] End: 11-03-2022 Screening mammography bi 2-view breast inc cad CHE SCREENING Radiology Routine Encounter for screening mammogram for breast cancer 1 Occurrences starting 10/04/2021 until 11/03/2022 [facility] Work Phone: Immunizations Immunization Date Immunization Notes Care Provider Fa tuan 02-01-2020 influenza, high-dose , quadrivalent vaccine (FLUZONE HIGH DOSE QUADRIVALENT) Joe Flor DO Work Phone: [facility] 01-09-2019 influenza, high dose seasonal, preservative-free Joe Flor DO Work Phone: [facility] 01-07-2018 influenza, high dose seasonal, preservative-free Joe Flor DO Work Phone: [facility] Work Phone: 01-20-2017 influenza, high dose seasonal, preservative-free Joe Flor DO Work Phone: [facility] Work Phone: 03-06-2016 influenza, high dose seasonal, preservative-free Joe Flor DO Work Phone: [facility] Work Phone: Payers Date Payer Category Payer Unknown [id number] 2022 Unknown [id number] 2015 Medicare [employer] [place] [id number] 2015-Present [phone] [address] [place] [address] O [id number] 2008 Unknown [facility] [id number] 2008-Present [phone] [address] [address] [place] [address] Indemnity [id number] 1947 Unknown [id number] Social History Date Type Detail Facility Start: 03-06-2016 Tobacco smoking status NHIS Smokes tobacco daily [facility] Work Phone: History of tobacco use Cigarette Smoker [facility] Work Phone: Start: 03-06-2016 Tobacco use and exposure Smokeless tobacco non-user [facility] Work Phone: Start: 04-12-2020 Alcohol intake Current drinke r of alcohol (finding) [facility] Start: 03-06-2016 History SDOH Alcohol Comment Occasionally [facility] Start: 03-12-2017 Tobacco Comment pack to pack a nd half a day if not working [facility] Start: 1945 Sex Assigned At Not on file C [facility] Clinical Note 09-12-2022 Note Date & Type Note Facility 09-12-2022 Note Patient Outreach (IN TMMN) DEE JIMENEZ ([id number]) 1945 F Date Time Provider Department 09/12/22 JOE FLOR During your visit today, we recorded the following information about you: Allergies As of Date: 09/12/2022 (No Known Allergies) Date Reviewed: 04/12/2020 Reviewed by: Laura AlvesInspector [employer]) RENATO Chapman - Fully Assessed Visit Diagnosis:Encounter for screening mammogram for breast cancer [Z12.31] Order(s):[facility] SCREENING [[id number]] Order #: [id number] FUTURE Prescriptions as of 09/17/2022 - budesonide-formoterol [...] Encounter Status:Closed by FCO MENDEZ on 09/17/22 [facility] Clinical Note 10-04-2021 Note Date & Type Note Facility 10-04-2021 Note Patient Outreach (IN TMMN) DEE JIMENEZ ([id number]) 1945 F Date Time Provider Department 10/04/21 JOE FLOR During your visit today, we recorded the following information about you: Allergies As of Date: 10/04/2021 (No Known Allergies) Date Reviewed: 04/12/2020 Reviewed by: Laura (Inspector [employer]) RENATO Chapman - Fully Assessed Visit Diagnosis:Encounter for screening mammogram for breast cancer [Z12.31] Order(s):[facility] SCREENING [[id number]] Order #: [id number] FUTURE Prescriptions as of 10/09/2021 - budesonide-formoterol [...] Encounter Status:Closed by FCO MENDEZ on 10/09/21 [facility] Evaluation note Note Date & Type Note Facility documented in this encounter [facility] Reason for referral (narrative) Diagnostic Procedure Only (Routine) - Pending Review Note Date & Type Note Facility Referral ID Status Reason Start Date Expiration Date Visits Requested Visits Authorized [id number] Pending Review Auto-Generat ed Referral 10/04/2021 11/03/2022 1 1 [facility] Summary Purpose Family History No Family History Records FoundNo Family History Records FoundNo Family History Records Found Advance Directives No Advanced Directives Records FoundDocuments on File Type Date Recorded 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 ([place]) DATE CREATED AUTHOR AUTHOR'S ORGANIZ ATION 09/19/2022 [facility] Source Comments (unrecognize d section and content) In the event this informatio n is protected by the Federal Confidentiality of Alcohol and Drug Abuse Patient Records regulations: The Federal rules restrict any use of the information to criminally investigate or prosecute any alcohol or drug abuse patient.[facility] Care Teams (unrecognized sec tion and content) [...] BE BASED ON THE PRIMARY CLINICAL RECORDS. [employer] [facility]. provides no warranty or guarantee of the accuracy or completeness of information in this document.
[2023-05-01 12:45] VITALS: PULSE 100; PULSE 103; PULSE 114; PULSE 120; PULSE 121; PULSE 124; PULSE 127; PULSE 130; O2SAT 86; O2SAT 89; O2SAT 90; O2SAT 92
--- NOTE | 2023-05-01 12:49 | CPS ---
PATIENT WALKED 1 FULL LAP PRIOR TO PLACEMENT OF 2LPM NC FOR SPO2 86%. REMAINDER OF TESTING DONE ON 2LPM. PT HAD SOMEWHAT INCREASED WOB, HOWEVER DID NOT REQUIRE REST BREAKS. SHE IS HOPING FOR SOONER APPT THAN MAY 23 FOR F/U WITH PULMONARY PROVIDER. OFFICE NOTIFIED OF NEW HOME OXYGEN NEED AND FAXED TEST RESULTS. ALSO AWARE OF PT REQUEST FOR SOONER APPT IF POSSIBLE. PFT DONE YESTERDAY
--- NOTE | 2023-05-02 12:35 | PCM.PSN.6M ---
PSN 6 Minute Walk Test 6 Minute Walk Test 6 Minute Walk Test: 6 Minute Walk Test PSN:6-Minute Walk Test Start: 05/01/23 12:45 Freq: Status: Active Protocol: RESP.6MINW Document 05/01/23 12:45 [facility] (Rec: 05/01/23 12:53 [facility] [id number]) 6 Minute Walk Test Date Performed 05/01/23 Time Performed 12:30 Height 5 ft 5 in Weight: 93 lb Weight in Pounds 93.[address]: Elvis Rolon Assistive device used: None Pre-test Oxygen Delivery Method Room Air Pulse Ox 89 Pulse Rate (60-100) 100 Dyspnea Amanuel Scale (0-10) 2 Reported Symptoms Increased Work of Breathing 1st minute Oxygen Delivery Method Room Air Pulse Ox 86 Pulse Rate (60-100) 114 H Dyspnea Amanuel Scale (0-10) 3 Number of Rests Taken 1 Reported Symptoms Increased Work of Breathing 2nd minute Oxygen Flow Rate (L/min) 2 Oxygen Delivery Method Nasal Cannula Pulse Ox 90 Pulse Rate (60-100) 120 H Dyspnea Amanuel Scale (0-10) 3 Number of Rests Taken 0 Reported Symptoms Increased Work of Breathing 3rd minute Oxygen Flow Rate (L/min) 2 Oxygen Delivery Method Nasal Cannula Pulse Ox 90 Pulse Rate (60-100) 121 H Dyspnea Amanuel Scale (0-10) 3 Number of Rests Taken 0 Reported Symptoms Increased Work of Breathing 4th minute Oxygen Flow Rate (L/min) 2 Oxygen Delivery Method Nasal Cannula Pulse Ox 92 Pulse Rate (60-100) 124 H Dyspnea Amanuel Scale (0-10) 3 Number of Rests Taken 0 Reported Symptoms Increased Work of Breathing 5th minute Oxygen Flow Rate (L/min) 2 Oxygen Delivery Method Nasal Cannula Pulse Ox 90 Pulse Rate (60-100) 127 H Dyspnea Amanuel Scale (0-10) 3 Number of Rests Taken 0 Reported Symptoms Increased Work of Breathing 6th minute Oxygen Flow Rate (L/min) 2 Oxygen Delivery Method Nasal Cannula Pulse Ox 90 Pulse Rate (60-100) 130 H Dyspnea Amanuel Scale (0-10) 3 Number of Rests Taken 0 Reported Symptoms Increased Work of Breathing Post-test Oxygen Delivery Method Room Air Pulse Ox 90 Pulse Rate (60-100) 103 H Dyspnea Amanuel Scale (0-10) 2 Reported Symptoms Increased Work of Breathing Full Laps Walked 12 Partial Lap, Number of Tiles Walked 34 Total Distance Walked (ft) 742 05/01/23 12:49 [facility]iop[facility] Services by Carmella Casarez PATIENT WALKED 1 FULL LAP PRIOR TO PLACEMENT OF 2LPM NC FOR SPO2 86%. REMAINDER OF TESTING DONE ON 2LPM. PT HAD SOMEWHAT INCREASED WOB, HOWEVER DID NOT REQUIRE REST BREAKS. SHE IS HOPING FOR SOONER APPT THAN MAY 23 FOR F/U WITH PULMONARY PROVIDER. OFFICE NOTIFIED OF NEW HOME OXYGEN NEED AND FAXED TEST RESULTS. ALSO AWARE OF PT REQUEST FOR SOONER APPT IF POSSIBLE. PFT DONE YESTERDAY Initialized on 05/01/23 12:49 - END OF NOTE Interpretation Interpretation: The patient ambulated 742 feet over the course of 6 minutes beginning on room air without assistive devices. Pretesting oxygen saturation was noted to be 89% on room air. With ambulation, the cecily oxygen saturation was 86%, requiring 2 L/min of supplemental oxygen to maintain appropriate saturations. Recommendations Recommendations: 2 L/min of supplemental oxygen should be utilized with exertion.
== END | disposition home or self-care (01) ==
LOC: PSN 12:18
PROVIDERS: PCP Family Medicine; Visit Provider Internal Medicine Critical Care Medicine
DX: F17.211 Nicotine dependence, cigarettes, in remission (principal); J44.9 Chronic obstructive pulmonary disease, unspecified
CPT/HCPCS: 94618

== ENCOUNTER → 2023-05-28 | Outpatient (CLI) | payer MEDICARE, OTHER, SELFPAY ==
--- NOTE | 2023-05-28 16:34 | CT_ITS ---
STUDY: LOW DOSE CT LUNG CANCER SCREENING REASON FOR EXAM: Female, 77 years old. h/o TObacco Dependency. Patient smoked 1 pack per day for 55 years. COPD/emphysema RADIATION DOSAGE (If Supplied By Facility): CTDIvol = ( 2.01 ) mGy, DLP = ( 69.72 ) mGycm TECHNIQUE: No contrast was administered. Low dose technique was utilized (average mAS-38 and kVp 120). 1.25 mm axial source images with a slice interval of 1.25-mm were reconstructed in lung windows. 2.5 mm axial source images with a slice interval of 2.5-mm were reconstructed in lung windows. 5.0 mm axial source images with a slice interval of 5.0-mm were reconstructed in soft tissue windows. COMPARISON: Comparison is made with prior chest radiograph dated April 09, 2023. NODULES: There is a 6.2 mm x 10.7 mm spiculated nodule in the posterior medial segment of the right lower lobe. A neoplastic process should be ruled out. There is also evidence of a mild scarring at the right lung base. Emphysema: Hyperinflation. Emphysematous changes. Scarring at the lung apices worse on the right side. Endobronchial lesion: There is evidence of a soft tissue density at the origin of the right mainstem bronchus. This may represent sputum or phlegm. Clinical correlation is recommended. Aorta: Atherosclerotic plaque formation of the aortic arch. CORONARY ARTERIES: Coronary artery calcification is seen. Heart: Unremarkable Pulmonary artery: Unremarkable Mediastinal nodes: Moderate Other chest and abdominal findings: Loss of height of the dorsal vertebrae. CT/Low Dose CT Lung Screening IMPRESSION: Lung-RADS category 4A - Screening at 3 months with LDCT or evaluation with PET/CT may be used. IMPORTANT NOTES FOR USE: ACR Lung-RADS Version 1.1 Assessment Categories Release Date: 2018 Category: Coded 0-4 bases on nodule(s) with highest degree of suspicion. Negative screen is defined as categories 1 and 2; a positive screen is defined as categories 3 and 4. Category 3 and 4A nodules that are unchanged on interval CT should be coded as category 2, and individuals returned to screening in 12 months. Category 4X: Category 3 or 4 nodules with additional imaging findings that increase the suspicion of lung cancer, such as spiculation, GGN that doubles in size in 1 year, enlarged lymph notes, etc. Category Modifiers: S (significant finding unrelated to lung cancer) Electronically Signed: Roman Renner MD at 8:43 EST ,
--- OUTSIDE RECORDS SUMMARY | 2023-05-28 20:48 | XMS RPT_ITS | CCD ---
Author Name Unknown Address [facility] [email or web address] [place] [address] Organization [facility] Care Team Providers Care Shower Doors And Panels Fabricator Name Role Phone PARESH HOWELL (IT PROGRAM ENGAGEMENT DIRECTOR) Unavailable Unavailable Joe Flor DO Primary Care Provider [phone] LYNNE PRETTY, DR TRINH Attending UnavailTOM Jacob DO Primary Care Unavailable Medications Completed/Discontinued Medications Medication Drug Class(es) Dates Sig (Normalized) Sig (Original) [id number] 200 actuat albuterol 0.09 mg/actuat metered dose [...] roshni DO Work Phone: Internal Medicine Main [place] Start: 02-27-2017 Ambulatory PARESH (IT PROGRAM ENGAGEMENT DIRECTOR) [facility] Procedures Date Procedure Procedure Detail Performing Clinician Start: 02-11-2017 Colonoscopy Joe jasmine DO Work Phone: Start: 03-14-2016 Mammography Joe jasmine DO Work Phone: Plan of Treatment Date Care Activity Detail Author Start: 03-15-2025 LIPID SCREEN LIPID SCREEN [facility] Start: 03-15-2023 DIABETES SCREEN DIABETES SCREEN [facility] Start: 02-11-2022 Colonoscopy COLONOSCOPY [facility] Start: 02-11-2022 COLORECTAL CANCER SCREENING COLORECTAL CANCER SCREENING [facility] Start: 12-07-2021 Influenza vaccination INFLUENZA (#1) [facility] Start: 04-08-2021 ADVANCE DIRECTIVE DISCUSSION ADVANCE DIRECTIVE DISCUSSION [facility] Start: 03-15-2021 ANNUAL PCP TEAM CHRONIC DISEASE VISIT ANNUAL PCP TEAM CHRONIC DISEASE VISIT [facility] Start: 03-14-2017 Mammography MAMMOGRAM [facility] Start: 09-20-2016 FECAL OCCULT BLOOD FECAL OCCULT BLOOD [facility] Start: 12-26-1997 SHINGRIX VACCINE (1 of 2) SHINGRIX VACCINE (1 of 2) [facility] Start: 12-26-1992 COLOGUARD (FIT-DNA) COLOGUARD (FIT-DNA) [facility] Start: 12-26-[address] COLONOGRAPHY [facility] Start: 12-26-1992 SIGMOIDOSCOPY SIGMOIDOSCOPY [facility] Start: 12-26-1966 Urine microalbumin profile DTAP,TDAP,TD (1 - Tdap) [facility] Start: 12-26-1953 PNEUMOCOCCAL: 65+ (1 - PCV) PNEUMOCOCCAL: 65+ (1 - PCV) [facility] Start: 06-25-1948 COVID-19 VACCINE (#1) COVID-19 VACCINE (#1) [facility] End: 11-03-2022 Screening mammography bi 2-view breast inc cad CHE SCREENING Radiology Routine Encounter for screening mammogram for breast cancer 1 Occurrences starting 10/04/2021 until 11/03/2022 [facility] Work Phone: Immunizations Immunization Date Immunization Notes Care Provider Fa tuan 02-01-2020 influenza, high-dose , quadrivalent vaccine (FLUZONE HIGH DOSE QUADRIVALENT) Joe Flor DO Work Phone: [facility] 01-09-2019 influenza, high dose seasonal, preservative-free Joe Flor DO Work Phone: [facility] 01-07-2018 influenza, high dose seasonal, preservative-free Joe Flor DO Work Phone: [facility] Work Phone: 01-20-2017 influenza, high dose seasonal, preservative-free Joe Flor DO Work Phone: [facility] Work Phone: 03-06-2016 influenza, high dose seasonal, preservative-free Joe Flor DO Work Phone: [facility] Work Phone: Payers Date Payer Category Payer Unknown [id number] 2022 Unknown [id number] 2015 Medicare [employer] [place]AGE [place] MEDICARE [id number] 2015-Present [phone] [address] [place] [address] O [id number] 2008 Unknown [facility] [id number] 2008-Present [phone] [address] [address] [place] [address] Indemnity [id number] 1945 Unknown [id number] Social History Date Type Detail Facility Start: 03-06-2016 Tobacco smoking status NHIS Smokes tobacco daily [facility] Work Phone: History of tobacco use Cigarette Smoker [facility] Work Phone: Start: 03-06-2016 Tobacco use and exposure Smokeless tobacco non-user [facility] Work Phone: Start: 04-12-2020 Alcohol intake Current drinke r of alcohol (finding) [facility] Start: 03-06-2016 History SDOH Alcohol Comment Occasionally [facility] Start: 03-12-2017 Tobacco Comment pack to pack a nd half a day if not working [facility] Start: 1945 Sex Assigned At Not on file C [facility] Clinical Note 09-12-2022 Note Date & Type Note Facility 09-12-2022 Note Patient Outreach (IN TMMN) DEE JIMENEZ ([id number]) 1945 F Date Time Provider Department 09/12/22 JOE FLOR During your visit today, we recorded the following information about you: Allergies As of Date: 09/12/2022 (No Known Allergies) Date Reviewed: 04/12/2020 Reviewed by: Laura AlvesRehabilitation Liaison) RENATO Chapman - Fully Assessed Visit Diagnosis:Encounter for screening mammogram for breast cancer [Z12.31] Order(s):[facility] SCREENING [[id number]] Order #: [id number] FUTURE Prescriptions as of 09/17/2022 - budesonide-formoterol [...] Encounter Status:Closed by FCO MENDEZ on 09/17/22 [facility] Clinical Note 10-04-2021 Note Date & Type Note Facility 10-04-2021 Note Patient Outreach (IN TMMN) DEE JIMENEZ ([id number]) 1945 F Date Time Provider Department 10/04/21 JOE FLOR During your visit today, we recorded the following information about you: Allergies As of Date: 10/04/2021 (No Known Allergies) Date Reviewed: 04/12/2020 Reviewed by: Laura (Rehabilitation Liaison) RENATO Chapman - Fully Assessed Visit Diagnosis:Encounter for screening mammogram for breast cancer [Z12.31] Order(s):[facility] SCREENING [[id number]] Order #: [id number] FUTURE Prescriptions as of 10/09/2021 - budesonide-formoterol [...] Encounter Status:Closed by FCO MENDEZ on 10/09/21 [facility] Evaluation note Note Date & Type Note Facility documented in this encounter [facility] Reason for referral (narrative) Diagnostic Procedure Only (Routine) - Pending Review Note Date & Type Note Facility Referral ID Status Reason Start Date Expiration Date Visits Requested Visits Authorized [id number] Pending Review Auto-Generat ed Referral 10/04/2021 11/03/2022 1 1 [facility] Summary Purpose Family History No Family History Records FoundNo Family History Records FoundNo Family History Records Found Advance Directives No Advanced Directives Records FoundDocuments on File Type Date Recorded 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 Advance Directive(s) 02/11/2017 8:51 AM Advance Directive(s) 12/26/2016 2:39 PM Additional Source Comments INFORMATION SOURCE (unrecogn ized section and content) DATE CREATED AUTHOR AUTHOR'S ORGANIZ ATION 09/15/2022 [facility] ([place]) DATE CREATED AUTHOR AUTHOR'S ORGANIZ ATION 09/19/2022 [facility] Source Comments (unrecognize d section and content) In the event this informatio n is protected by the Federal Confidentiality of Alcohol and Drug Abuse Patient Records regulations: The Federal rules restrict any use of the information to criminally investigate or prosecute any alcohol or drug abuse patient.[facility] Care Teams (unrecognized sec tion and [...] BE BASED ON THE PRIMARY CLINICAL RECORDS. [facility] [employer] [facility]. provides no warranty or guarantee of the accuracy or completeness of information in this document.
== END | disposition home or self-care (01) ==
LOC: CT 16:33
PROVIDERS: PCP Family Medicine; Referring Provider Internal Medicine Critical Care Medicine; Visit Provider Internal Medicine Critical Care Medicine
DX: F17.211 Nicotine dependence, cigarettes, in remission (principal); J44.9 Chronic obstructive pulmonary disease, unspecified
CPT/HCPCS: 71271

== ENCOUNTER → 2023-05-30 | Outpatient (CLI) | payer MEDICARE, OTHER, SELFPAY ==
[2023-05-30 12:47] LABS: Platelet Count 329 K/mm3 (150-450)
[2023-05-30 12:55] LABS: International Normalized Ratio 0.9; Partial Thromboplast Time 25.4 Seconds (24.1-36.2); Prothrombin Time (Protime)PT. 12.5 SECONDS (11.7-14.9)
== END | disposition home or self-care (01) ==
LOC: LAB 11:55
PROVIDERS: PCP Family Medicine; Referring Provider Nurse Practitioner Acute Care; Visit Provider Nurse Practitioner Acute Care
DX: R06.00 Dyspnea, unspecified (principal); I48.91 Unspecified atrial fibrillation; R91.8 Other nonspecific abnormal finding of lung field
CPT/HCPCS: 36415; 85049; 85610; 85730

== ENCOUNTER 2023-06-07 08:43 | Outpatient (CLI) | payer MEDICARE, OTHER, SELFPAY ==
[2023-06-07] VITALS (16 sets, daily range): BP systolic 116–157; BP diastolic 60–89; PULSE 84–96; RESP 18–21; TEMP 36.4; O2SAT 94–100; BMI 15.7
--- OUTSIDE RECORDS SUMMARY | 2023-06-07 09:07 | XMS RPT_ITS | CCD ---
Author Name Unknown Address [facility] [address] [place] [address] Organization [facility] Care Team Providers Care Structural Test Engineer Name Role Phone PARESH HOWELL ([employer]EE BLENDER) Unavailable Unavailable Joe Flor DO Primary Care Provider LYNNE PRETTY, DR TRINH Attending UnavailTOM Jacob DO Primary Care Unavailable Medications Completed/Discontinued Medications Medication Drug Class(es) Dates Sig (Normalized) Sig (Original) [id number] 200 actuat albuterol 0.09 mg/actuat metered dose [...] roshni DO Work Phone: Internal Medicine [facility] Start: 02-27-2017 Ambulatory PARESH ([employer]FFEE BLENDER) [facility] Procedures Date Procedure Procedure Detail Performing Clinician Start: 02-11-2017 Colonoscopy Joe jasmine DO Work Phone: Start: 03-14-2016 Mammography Joe jasmine DO Work Phone: Plan of Treatment Date Care Activity Detail Author Start: 03-15-2025 LIPID SCREEN LIPID SCREEN [facility] Start: 03-15-2023 DIABETES SCREEN DIABETES SCREEN [facility] Start: 02-11-2022 Colonoscopy COLONOSCOPY [facility] Start: 02-11-2022 COLORECTAL CANCER SCREENING COLORECTAL CANCER SCREENING [facility] Start: 12-07-2021 Influenza vaccination INFLUENZA (#1) [facility] Start: 04-08-2021 ADVANCE DIRECTIVE DISCUSSION ADVANCE DIRECTIVE DISCUSSION [facility] Start: 03-15-2021 ANNUAL PCP TEAM CHRONIC DISEASE VISIT ANNUAL PCP TEAM CHRONIC DISEASE VISIT [facility] Start: 03-14-2017 Mammography MAMMOGRAM [facility] Start: 09-20-2016 FECAL OCCULT BLOOD FECAL OCCULT BLOOD [facility] Start: 12-26-1997 SHINGRIX VACCINE (1 of 2) SHINGRIX VACCINE (1 of 2) [facility] Start: 12-26-1992 COLOGUARD (FIT-DNA) COLOGUARD (FIT-DNA) [facility] Start: 12-26-[address] COLONOGRAPHY [facility] Start: 12-26-1992 SIGMOIDOSCOPY SIGMOIDOSCOPY [facility] Start: 12-26-1966 Urine microalbumin profile DTAP,TDAP,TD (1 - Tdap) [facility] Start: 12-26-1953 PNEUMOCOCCAL: 65+ (1 - PCV) PNEUMOCOCCAL: 65+ (1 - PCV) [facility] Start: 06-25-1948 COVID-19 VACCINE (#1) COVID-19 VACCINE (#1) [facility] End: 11-03-2022 Screening mammography bi 2-view breast inc cad [facility] SCREENING Radiology Routine Encounter for screening mammogram for breast cancer 1 Occurrences starting 10/04/2021 until 11/03/2022 [facility] Work Phone: Immunizations Immunization Date Immunization Notes Care Provider Fa tuan 02-01-2020 influenza, high-dose , quadrivalent vaccine (FLUZONE HIGH DOSE QUADRIVALENT) Joe Flor DO Work Phone: [facility] 01-09-2019 influenza, high dose seasonal, preservative-free Joe Flor DO Work Phone: [facility] 01-07-2018 influenza, high dose seasonal, preservative-free Joe Flor DO Work Phone: [facility] Work Phone: 01-20-2017 influenza, high dose seasonal, preservative-free Joe Flor DO Work Phone: [facility] Work Phone: 03-06-2016 influenza, high dose seasonal, preservative-free Joe Flor DO Work Phone: [facility] Work Phone: Payers Date Payer Category Payer Unknown [id number] 2022 Unknown [id number] 2015 Medicare [employer] [place] [id number] 2015-Present [phone] [address] [place] [address] O [id number] 2008 Unknown [facility] [id number] 2008-Present [phone] [address] [address] [place] [address] Indemnity [id number] 1945 Unknown [id number] Social History Date Type Detail Facility Start: 03-06-2016 Tobacco smoking status NHIS Smokes tobacco daily [facility] Work Phone: History of tobacco use Cigarette Smoker [facility] Work Phone: Start: 03-06-2016 Tobacco use and exposure Smokeless tobacco non-user [facility] Work Phone: Start: 04-12-2020 Alcohol intake Current drinke r of alcohol (finding) [facility] Start: 03-06-2016 History SDOH Alcohol Comment Occasionally [facility] Start: 03-12-2017 Tobacco Comment pack to pack a nd half a day if not working [facility] Start: 1945 Sex Assigned At Not on file C [facility] Clinical Note 09-12-2022 Note Date & Type Note Facility 09-12-2022 Note Patient Outreach (IN [facility]) DEE JIMENEZ ([id number]) 1945 F Date Time Provider Department 09/12/22 JOE FLOR During your visit today, we recorded the following information about you: Allergies As of Date: 09/12/2022 (No Known Allergies) Date Reviewed: 04/12/2020 Reviewed by: Laura AlvesMedication Care Manager) RENATO Chapman - Fully Assessed Visit Diagnosis:Encounter for screening mammogram for breast cancer [Z12.31] Order(s):[facility] SCREENING [[id number]] Order #: [id number] FUTURE Prescriptions as of 09/17/2022 - budesonide-formoterol [...] Encounter Status:Closed by FCO MENDEZ on 09/17/22 [facility] Clinical Note 10-04-2021 Note Date & Type Note Facility 10-04-2021 Note Patient Outreach (IN [facility]) DEE JIMENEZ ([id number]) 1945 F Date Time Provider Department 10/04/21 JOE FLOR During your visit today, we recorded the following information about you: Allergies As of Date: 10/04/2021 (No Known Allergies) Date Reviewed: 04/12/2020 Reviewed by: Laura (Medication Care Manager) RENATO Chapman - Fully Assessed Visit Diagnosis:Encounter for screening mammogram for breast cancer [Z12.31] Order(s):[facility] SCREENING [[id number]] Order #: [id number] FUTURE Prescriptions as of 10/09/2021 - budesonide-formoterol [...] Encounter Status:Closed by FCO MENDEZ on 10/09/21 [facility] Evaluation note Note Date & Type Note Facility documented in this encounter [facility] Reason for referral (narrative) Diagnostic Procedure Only (Routine) - Pending Review Note Date & Type Note Facility Referral ID Status Reason Start Date Expiration Date Visits Requested Visits Authorized [id number] Pending Review Auto-Generat ed Referral 10/04/2021 11/03/2022 1 1 [facility] Summary Purpose Family History No Family History Records FoundNo Family History Records FoundNo Family History Records Found Advance Directives No Advanced Directives Records FoundDocuments on File Type Date Recorded Patient Farm[employer] Advance Directive(s) 02/11/2017 8:51 AM Advance Directive(s) 12/26/2016 2:39 PM Additional Source Comments INFORMATION SOURCE (unrecogn ized section and content) DATE CREATED AUTHOR AUTHOR'S ORGANIZ ATION 09/15/2022 [facility] ([place]) DATE CREATED AUTHOR AUTHOR'S ORGANIZ ATION 09/19/2022 [facility] Source Comments (unrecognize d section and content) In the event this informatio n is protected by the Federal Confidentiality of Alcohol and Drug Abuse Patient Records regulations: The Federal rules restrict any use of the information to criminally investigate or prosecute any alcohol or drug abuse patient.[facility] Care Teams (unrecognized sec tion and [...] BE BASED ON THE PRIMARY CLINICAL RECORDS. [facility] [employer] [facility]. provides no warranty or guarantee of the accuracy or completeness of information in this document.
[2023-06-07] MEDS: 0.9% Saline Lock 10 ML Syringe IV (09:25)
[2023-06-07] MEDS: 0.9% Normal Saline (250mL Bag) 250 ML 15 ML IV (09:31)
[2023-06-07] MEDS: Midazolam 2 MG/2 ML Syringe IV (10:21)
[2023-06-07] MEDS: fentaNYL 100 MCG/2 ML Ampul IV (10:22)
--- NOTE | 2023-06-07 10:30 | LUNB_PTH ---
PATHOLOGY RESULTS PATIENT: DEE JIMENEZ LOC: [place] U#:[id number] AGE/SX: 77/F ROOM: RE06/07/[address]: ALEXIA Doran : 1945 BED: DIS: 06/07/2023 SPEC #: [id number] RECD: 06/07/23 11:13 STATUS: THELMA KAN #: [id number] CHARLES: 06/07/23 10:[address]: Charlette Ribera NP DEPT: SURGICAL PATHOLOGY RECD BY: Vivi Whitfield ENTERED: 06/07/23 11:14 SP TYPE: LUNG BX OTHR DR: Filomena Thurston DO Tissues: Lung, NOS Procedures: Surgery Specimen Level IV HEADER OPERATION: CT-guided right lung biopsy PRE-OP DIAGNOSIS: Right lower lung mass TISSUE SUBMITTED: Posterior right lung 20-gauge core x6 MICROSCOPIC DIAGNOSIS Right posterior lung mass, CT-guided core biopsy: Lung parenchymal tissue with reactive changes, negative for malignancy. See comment. SJ:holly 06/10/2023 COMMENT The specimen is evaluated at the time of biopsy by Dr. Landeros. Immediate Evaluation = Negative for malignant cells. Correlation with clinical, radiologic findings and appropriate follow up are necessary. Case has been reviewed in consultation with Dr. Cotter who concurs with the above diagnosis. IDC:[email or web address] MICROSCOPIC DESCRIPTION Slides are reviewed. GROSS DESCRIPTION Received in fixative is one container labeled with the patient's name and designated right lung. The specimen consists of multiple minute fragments of sarabia tissue that in aggregate measure 0.1 x <0.1 x <0.1 cm. The specimen is totally submitted in one cassette. Three touch imprints are prepared at the time of core biopsy. / AM:holly 06/07/2023 TC:5 CPT: 62507, 37348
[2023-06-07] MEDS: Lidocaine 2% (20 ml mdv) 20 ML Vial INFILT (10:31)
--- NOTE | 2023-06-07 10:50 | RAD_ITS ---
STUDY: X-RAY CHEST REASON FOR EXAM: Female, 77 years old. Follow up immediately after lung biopsy. TECHNIQUE: Single frontal view of the chest on 2 images. COMPARISON: 04/09/2023 FINDINGS: Stable hyperinflation. New ovoid opacity projected over the right lower lobe just above the hemidiaphragm measuring approximately 7.3 cm in diameter. Borderline cardiomegaly with aortic tortuosity unchanged. No abnormality of the visualized soft tissue structures of the upper abdomen. RAD/Chest Insp/Exp 2 View IMPRESSION: Stable hyperinflation with interval development of ovoid patchy opacity projected over the right hemidiaphragm. No complications noted from lung biopsy. Specifically, no evidence of a right pneumothorax. Electronically Signed: Jonathan Tipton MD at 11:30 EST ,
--- NOTE | 2023-06-07 11:23 | PRO.PCM_ITS ---
Procedure Report Date of Procedure: 06/07/23 Assessment & Plan Assessment/Plan (1) Right lower lobe lung mass: PLAN: PROCEDURE: CT GUIDED CORE NEEDLE LUNG BIOPSY ORDERING PROVIDER: Charlette Ribera CNP INDICATION: Female, 77 years old. Right lower lobe nodule. PROVIDER: JASMYN Soliman CONSENT: Written informed consent was obtained having explained the risks, benefits and alternatives in detail with the patient who accepted the risks and agreed to proceed. Laboratory review and clinical assessment was performed. PRE-PROCEDURE SEDATION ASSESSMENT: Current history and physical dictated by referring physician and reviewed. No clinical changes since date of exam. Patient has an ASA Class of 2. PROCEDURAL SEDATION PROTOCOL: The Drugs used were: 1 mg Versed, IV, and 25 mcg Fentanyl, IV. The sedation time was: 25 minutes, starting at 1021 and terminated at 1046. The procedural sedation protocol was independently monitored by the department nurse. RADIATION DOSAGE (If Supplied By Facility): CTDIvol = 17.69 mGy, DLP = 340.76 mGycm Individualized dose optimization techniques were used for this CT. TECHNIQUE: The patient was placed in a prone position. A noncontrast CT was performed to localize the lesion in the right lower lobe. The skin surface was prepped and draped in a sterile fashion. 2% lidocaine was used for local anesthesia. Using CT guidance, a 20-gauge coaxial biopsy device was advanced to the perip brenda of the lesion. A total of 6 core specimens were obtained. Specimens were microscopically reviewed by pathology in the CT suite and placed in formalin solution. BioSentry tract sealant system was deployed at the biopsy site, and the biopsy needle was removed. A sterile occlusive dressing was applied to the biopsy site. The patient tolerated the procedure well. An immediate chest xray was ordered, per protocol. A negative biopsy does not exclude malignancy. Further imaging or clinical followup based on patient condition and degree of clinical suspicion for malignancy. Suggest rebiopsy, if biopsy results do not match with clinical scenario. IMPRESSION: 1. CT directed core needle biopsy of right lower lobe nodule using CT image guidance with image documentation as described. Pathology results are pending. 2. Procedural Sedation protocol utilized with independent monitoring by the department nurse. Procedures Radiology Radiology CT Procedures: [id number] Biopsy Lung
--- NOTE | 2023-06-07 12:50 | RAD_ITS ---
STUDY: X-RAY CHEST REASON FOR EXAM: Female, 77 years old. 2 hours post lung biopsy -- 2 hours post lung biopsy TECHNIQUE: AP inspiration and expiration views. COMPARISON: Comparison is made with prior study done earlier today. FINDINGS: EKG electrodes are seen. No evidence of pneumothorax. Persistent density in the right lower lobe suggestive of possible hematoma overlying the biopsy site. RAD/Chest Insp/Exp 2 View IMPRESSION: No evidence of right pneumothorax following the biopsy. Persistent increased density in the right lower lobe suggestive of possible bleed surrounding the biopsied abnormality. Electronically Signed: Roman Renner MD at 13:13 EST ,
== END 2023-06-07 23:59 | disposition home or self-care (01) ==
LOC: CT 08:44
PROVIDERS: PCP Family Medicine; Referring Provider Nurse Practitioner Acute Care; Visit Provider Nurse Practitioner Acute Care
DX: R91.8 Other nonspecific abnormal finding of lung field (principal); R06.00 Dyspnea, unspecified
CPT/HCPCS: 32408; 71046; 77012; 88305; 99156; J7050; A4216; C2613

== ENCOUNTER → 2023-08-26 | Outpatient (CLI) | payer MEDICARE, OTHER, SELFPAY ==
--- NOTE | 2023-08-26 13:07 | CT_ITS ---
EXAM: CT CHEST WITHOUT INTRAVENOUS CONTRAST CLINICAL INDICATION: lung mass in smoker TECHNIQUE: Helically acquired images were obtained of the chest without intravenous contrast. This CT exam was performed using one or more of the following dose reduction techniques: automated exposure control, adjustment of the mA and/or kV according to patient size, and/or use of iterative reconstruction technique. RADIATION DOSE: CTDIvol = 6.04 mGy, DLP = 219.01 mGy-cm COMPARISON: Chest x-ray 06/07/2023 FINDINGS: LUNGS AND PLEURAL SPACES: Hyperexpansion of the lungs consistent with severe COPD. Small irregular densities in both lung bases especially the posterior right lung base consistent with pulmonary scars. No evidence for mass. No significant nodules. No pneumothorax. No infiltrates. No effusions. HEART: Prominent coronary artery calcifications. Heart size is normal. No pericardial effusion. MEDIASTINUM: Although no gross mediastinal or hilar mass or adenopathy is seen, adenopathy is difficult to exclude without IV contrast was not given. Esophagus is unremarkable. No hiatal hernia. THYROID: Unremarkable. No thyroid lesions. BONES/JOINTS: Diffuse demineralization. Numerous compression fractures especially of T7, T8, and T9. VASCULATURE: Heavily calcified aorta with no aneurysm. CT/Chest without Contrast IMPRESSION: 1. Severe COPD. 2. No evidence for acute chest disease. Electronically Signed: Dom Biswas MD at 17:26 EDT ,
== END | disposition home or self-care (01) ==
PROVIDERS: PCP Family Medicine; Referring Provider Nurse Practitioner Acute Care; Visit Provider Nurse Practitioner Acute Care
DX: R91.8 Other nonspecific abnormal finding of lung field (principal)
CPT/HCPCS: 71250

== ENCOUNTER → 2023-10-14 | Outpatient (CLI) | payer MEDICARE, OTHER, SELFPAY ==
[2023-10-14 15:03] LABS: Absolute Lymphocyte Count 1.63 X10^3/uL (0.83-4.51); Absolute Neutrophil Count 7.2 X10^3/uL (2.0-7.7); Basophil# 0.03 X10^3/uL; Basophil% 0.3 % (0-1); Eosinophil# 0.08 X10^3/uL; Eosinophils% 0.8 % (0-5); Hematocrit 44.3 % (37-47); Lymphocyte # 1.63 X10^3/ul (0.83-4.51); Lymphocyte % 16.9 % (19-41); Mean Corp Hgb Conc 31.6 g/dL (32-36); Mean Corpuscular Volume 101.4 fL (81-99); Mean Platelet Vol. 11.8 fl (6.2-12.0); Monocyte# 0.72 X10^3/uL; Monocyte% 7.5 % (0-10); NRBC Flagged by Analyzer 0 % (0-5); Neutrophil # 7.15 X10^3/uL (2.7-7.7); Neutrophil % 74.2 % (47-70); Platelet Count 277 K/mm3 (150-450); RBC Distribution Width CV 13.2 % (11.6-14.6); RBC Distribution Width SD 49.6 fl (35.1-43.9); Red Blood Count 4.37 M/mm3 (4.2-5.4); White Blood Count 9.6 K/mm3 (4.4-11.0)
[2023-10-14 15:32] LABS: ALB/GLOB Ratio 1.3 RATIO (0.9-2.4); AST(SGOT) 23 U/L (15-37); Alanine Aminotransfer ALT/SGPT 21 U/L (13-56); Albumin, Serum 4.2 g/dL (3.2-5.0); Alkaline Phosphatase 74 U/L (45-117); Anion Gap 5 (5-15); BUN 15 mg/dL (7-18); BUN/Creat Ratio 20.2 RATIO (10-20); Calcium,Total 9.6 mg/dL (8.5-10.1); Chloride 106 mmol/L (98-107); Cholesterol 210 mg/dL (200); Creatinine, Serum 0.74 mg/dL (0.55-1.02); EST Glomerular Filtration Rate 81 mL/min (>60); Est Glom Filt Rate - Afr Amer 98 mL/min (>60); Globulin 3.2 g/dL (2.2-4.2); Glucose 93 mg/dL (74-106); High Density Lipoprotein 81 mg/dL; Potassium 4.2 mmol/L (3.5-5.1); Protein, Total 7.4 g/dL (6.4-8.2); Sodium Level 140 mmol/L (136-145); Thyroid Stim Hormone (TSH) 0.96 uIU/mL (0.358-3.74); Triglycerides 170 mg/dL; Very Low Density Lipoprotein 34 mg/dL (5-40)
== END | disposition home or self-care (01) ==
LOC: MFPLAB 13:46
PROVIDERS: PCP Family Medicine; Visit Provider Family Medicine
DX: R63.4 Abnormal weight loss (principal); I25.10 Atherosclerotic heart disease of native coronary artery without angina pectoris; Z78.0 Asymptomatic menopausal state
CPT/HCPCS: 36415; 80053; 80061; 84443; 85025

== ENCOUNTER → 2024-02-20 | Outpatient (CLI) | payer MEDICARE, OTHER, SELFPAY ==
--- NOTE | 2024-02-20 14:14 | CT_ITS ---
STUDY: CT CHEST T ABDOMEN WITHOUT CONTRAST REASON FOR EXAM: Female, 78 years old. Lung nodules and high risk patient RADIATION DOSAGE (If Supplied By Facility): CTDIvol = ( 6.04 ) mGy, DLP = ( 219.01 ) mGycm TECHNIQUE: Transaxial imaging was performed without the administration of intravenous contrast material. Multiplanar coronal and sagittal images were reformatted. Individualized dose optimization techniques were used for this CT. COMPARISON: Comparison is made with prior study dated August 26, 2023. FINDINGS: CHEST Hyperinflation. Emphysematous changes. Mild scarring in the upper lobes. Minimal increased markings at the right lung base suggesting scarring. There is no demonstrated pleural abnormality. There are calcifications of the coronary arteries. Normal mediastinum. Normal hilar regions. Normal unenhanced pulmonary arteries. There is atherosclerotic calcification of the aortic arch with tortuosity and elongation of the aortic arch and descending thoracic aorta. There is demineralization of the thoracic spine. Almost complete collapse of the mid dorsal vertebrae. Loss of height of lower dorsal vertebrae and upper lumbar vertebrae. There is no demonstrated abnormality of the visualized upper abdomen. CT/Chest without Contrast IMPRESSION: COPD. Stable examination. Electronically Signed: Roman Renner MD at 11:50 EST ,
== END | disposition home or self-care (01) ==
LOC: CT 14:13
PROVIDERS: PCP Family Medicine; Referring Provider Nurse Practitioner Acute Care; Visit Provider Nurse Practitioner Acute Care
DX: R91.8 Other nonspecific abnormal finding of lung field (principal)
CPT/HCPCS: 71250

== ENCOUNTER → 2025-02-24 | Outpatient (CLI) | payer MEDICARE, OTHER, SELFPAY ==
--- NOTE | 2025-02-24 14:25 | CT_ITS ---
PROCEDURE: LOW DOSE CT LUNG SCREENING 02/24/2025 REASON FOR EXAM: SMOKER Current smoker. Patient has smoked 1-1/2 packs per day for 50+ years. TECHNIQUE: Procedure Code: CTLUNGSCREEN Modality: CT Procedure: LOW DOSE CT LUNG SCREENING Coronal and Sagittal reconstruction series were provided. One or more dose reduction techniques were used (e.g., Automated exposure control, adjustment of the mA and/or kV according to patient size, use of iterative reconstruction technique). REFERENCE LINK: [facility] Lung-RADS RADIATION DOSE SUMMARY: CTDlvol: 2.01 mGy DLP: 72.23 mGycm COMPARISON: Prior examination dated February 20, 2024. FINDINGS: PULMONARY NODULES: (Only nodules >3mm are reported) Nodules described below are on series 1 unless otherwise specified. Pulmonary Nodules: 1 mm noncalcified nodule in the peripheral lateral aspect of the right upper lobe as seen on axial image number 67 Hardware:None Lymph Nodes:Stable small benign-appearing mediastinal lymph nodes. Heart and Vasculature:The heart is nonenlarged.Atherosclerotic calcifications of the thoracic aorta. Thoracic aorta and pulmonary arteries have normal contours; noncontrast technique limits evaluation. Coronary Artery Calcifications: Present Lungs and Airways: Mild emphysematous changes are present. Stable scarring at the lung apices. Pleura:No pleural effusion. Upper Abdomen:Unremarkable Bones:Degenerative changes of the thoracic spine. Once again, there is almost complete collapse of a mid dorsal vertebrae. Loss of height of lower dorsal vertebrae. CT/Low Dose CT Lung Screening IMPRESSION: Stable examination. Coronary artery calcification (CAC) is is present Lung-RADS Category: 2 BENIGN (BASED ON IMAGING FEATURES OR INDOLENT BEHAVIOR). RECOMMEND 12-MONTH SCREENING LDCT. Other Significant Findings: Reading Location: [facility]
== END | disposition home or self-care (01) ==
LOC: CT 14:09
PROVIDERS: PCP Family Medicine; Referring Provider Nurse Practitioner Acute Care; Visit Provider Nurse Practitioner Acute Care
DX: F17.211 Nicotine dependence, cigarettes, in remission (principal)
CPT/HCPCS: 71271